=== PATIENT | female | born 1950 | race Caucasian/White ===

== ENCOUNTER → 2016-03-24 | Outpatient (CLI) | payer MEDICARE, BC, OTHER ==
[~2016-03-24] MED LIST: /ESCI10TA PO; ASPIRIN; ASPIRIN PO; CEPH2CAP PO; CRES5TAB PO; VICO5TA PO; VIT D PO; WARF5VL PO; XOPEAER IN
[2016-03-24 17:03] LABS: INR 3.14
== END ==
LOC: M WUC 12:19
PROVIDERS: ATTEND Internal Medicine Pulmonary Disease
DX: Z09 Encounter for follow-up examination after completed treatment for conditions other than malignant neoplasm (principal); Z79.01 Long term (current) use of anticoagulants; Z86.711 Personal history of pulmonary embolism

== ENCOUNTER → 2016-04-08 | Outpatient (CLI) | payer MEDICARE, BC, OTHER ==
[2016-04-08 18:24] LABS: INR 2.71
== END ==
LOC: M WUC 11:29
PROVIDERS: ATTEND Internal Medicine Pulmonary Disease
DX: Z51.81 Encounter for therapeutic drug level monitoring (principal); Z79.01 Long term (current) use of anticoagulants; Z86.711 Personal history of pulmonary embolism

== ENCOUNTER → 2016-05-12 | Outpatient (CLI) | payer MEDICARE, BC, OTHER ==
[2016-05-12 17:14] LABS: INR 3.43
== END ==
LOC: M WUC 13:38
PROVIDERS: ATTEND Internal Medicine Pulmonary Disease
DX: Z86.711 Personal history of pulmonary embolism (principal)

== ENCOUNTER → 2016-05-20 | Outpatient (REF) | payer MEDICARE, BC, OTHER | LOC: M LAB REF 16:09 | PROVIDERS: ATTEND Family Medicine | DX: R30.0 Dysuria (principal) ==

== ENCOUNTER → 2016-06-01 | Outpatient (CLI) | payer MEDICARE, BC, OTHER ==
[2016-06-01 20:51] LABS: INR 5.35
== END ==
LOC: M WUC 15:25
PROVIDERS: ATTEND Internal Medicine Pulmonary Disease
DX: E79.0 Hyperuricemia without signs of inflammatory arthritis and tophaceous disease (principal); Z86.711 Personal history of pulmonary embolism; Z09 Encounter for follow-up examination after completed treatment for conditions other than malignant neoplasm

== ENCOUNTER → 2016-06-07 | Outpatient (CLI) | payer MEDICARE, BC, OTHER ==
[2016-06-07 13:18] LABS: INR 2.29
== END ==
LOC: M WUC 10:19
PROVIDERS: ATTEND Internal Medicine Pulmonary Disease
DX: Z86.711 Personal history of pulmonary embolism (principal)

== ENCOUNTER → 2016-06-08 | Outpatient (REF) | payer MEDICARE, OTHER ==
[2016-06-08 15:22] LABS: BACTERIA, URINE MOD AMOUNT; TRANSITIONAL EPI CELLS, URINE SMALL AMOUNT /hpf
[2016-06-08 15:24] LABS: HYALINE CAST, URINE NONE SEEN /lpf (0-1); SQUAMOUS EPITHELIAL CELL URINE MOD AMOUNT /hpf (SMALL AMT)
[2016-06-08 15:25] LABS: CALCIUM OXALATE CRYSTALS,URINE SMALL AMOUNT /hpf
[2016-06-08 15:28] LABS: MICROSCOPIC EXAM PERFORMED
[2016-06-10 00:08] LABS: Candida species Negative (Negative); Gardnerella vaginalis Negative (Negative); Trichamonas vaginalis Negative (Negative)
== END ==
LOC: M SMT 13:10
PROVIDERS: ATTEND Specialist
DX: R30.0 Dysuria (principal)
CPT/HCPCS: 81015; 87086; 87480; 87510; 87660; G0463

== ENCOUNTER → 2016-06-15 | Outpatient (CLI) | payer MEDICARE, OTHER ==
[2016-06-15 18:49] LABS: INR 2.66
== END ==
LOC: M WUC 10:39
PROVIDERS: ATTEND Internal Medicine Pulmonary Disease
DX: Z86.711 Personal history of pulmonary embolism (principal)

== ENCOUNTER 2016-07-05 19:45 | Emergency (ER) | payer MEDICARE, OTHER ==
[~2016-07-05] VITALS: Ht 167.6 cm; Wt 100.7 kg
[2016-07-05] MEDS ORDERED: LOVE0.8I SC (19:54)
[2016-07-05] MEDS ORDERED: PROP10IN IV (19:54)
[2016-07-05 21:45] VITALS: BP 132/67
--- NOTE | 2016-07-06 09:10 | REP ---
ABDOMINAL SERIES: Supine and erect views of the abdomen and pelvis demonstrate no evidence of free intraperitoneal air and no evidence of small bowel obstruction. No dilated small bowel loops are seen. Metallic clips are seen in the right upper quadrant. There are degenerative changes of the spine. An accompanying view of the chest demonstrates no acute infiltrate. Calcified granuloma is seen in the right upper lobe. The heart is not enlarged. IMPRESSION: Negative abdominal series. Signed by Ethan Rojas MD 07/06/2016 04:44 P
== END 2016-07-05 21:47 | disposition home or self-care (01) ==
LOC: M ED 21:07
DX: Z51.89 Encounter for other specified aftercare (principal); Z88.0 Allergy status to penicillin; Z88.5 Allergy status to narcotic agent; Z79.01 Long term (current) use of anticoagulants; Z79.899 Other long term (current) drug therapy

== ENCOUNTER → 2016-07-08 | Outpatient (CLI) | payer MEDICARE, OTHER ==
[~2016-07-08] MED LIST changes: +LOVE0.8I SC; +PROP10IN IV
[2016-07-08 13:03] LABS: INR 2.19
== END ==
LOC: M WUC 09:32
PROVIDERS: ATTEND Internal Medicine Pulmonary Disease
DX: Z79.01 Long term (current) use of anticoagulants (principal); Z86.711 Personal history of pulmonary embolism

== ENCOUNTER → 2016-07-11 | Outpatient (CLI) | payer MEDICARE, OTHER ==
[2016-07-11 16:57] LABS: INR 1.79
== END ==
LOC: M WUC 14:40
PROVIDERS: ATTEND Internal Medicine Pulmonary Disease
DX: Z79.01 Long term (current) use of anticoagulants (principal)

== ENCOUNTER → 2016-07-15 | Outpatient (CLI) | payer MEDICARE, OTHER ==
[2016-07-15 12:37] LABS: INR 2.6
== END ==
LOC: M WUC 10:38
PROVIDERS: ATTEND Internal Medicine Pulmonary Disease
DX: Z79.01 Long term (current) use of anticoagulants (principal); Z86.711 Personal history of pulmonary embolism

== ENCOUNTER → 2016-07-20 | Outpatient (CLI) | payer MEDICARE, OTHER ==
[2016-07-20 18:14] LABS: BLOOD UREA NITROGEN 15 MG/DL (7-18); GLOMERULAR FILTRATION RATE > 60.0 (>45)
== END ==
LOC: M WUC 14:47
PROVIDERS: ATTEND Internal Medicine Gastroenterology
DX: K57.30 Diverticulosis of large intestine without perforation or abscess without bleeding (principal)

== ENCOUNTER → 2016-07-21 | Outpatient (CLI) | payer MEDICARE, BC, OTHER ==
[~2016-07-21] MED LIST changes: +GASTROGRAFIN SOLUTION 30ML (Q9963) As Ordered ONE; +ISOVUE-370 76% 100ML VIAL (Q9967) As Ordered ONE
--- NOTE | 2016-07-21 12:03 | REP ---
Clinical: Lower abdominal pain. Diverticulitis. Technique: Axial contrast enhanced images from the lung bases to the pubic symphysis using oral and 100 ml Isovue 370 intravenous contrast material with precontrast and delayed images of the abdomen as well as coronal and sagittal re-formations. Comparison: 11/11/2013. Findings: Mural thickening and pericolonic inflammatory stranding involving the proximal sigmoid colon as well as small amount of free fluid, phlegmonous changes and small foci of extraluminal fluid is compatible with acute sigmoid diverticulitis with abscess formation (images 100 - 120). The most well differentiated fluid collection/abscess is identified along the anti mesenteric border of the inflamed sigmoid colon and roughly measures 2.9 x 2.5 x 3.3 cm and appears essentially inseparable from the dome of the bladder which itself demonstrates ill-defined thickening. Correlation with urinalysis may be warranted to exclude colovesical fistula formation. Small foci of extraluminal gas adjacent to the area of diverticulitis is also suggested and may represent contained perforation. No there is no evidence for bowel obstruction and the remainder of the small and large bowel is relatively normal. Further evaluation of the pelvis demonstrates small amount of pelvic fluid and 4.5 cm left adnexal cyst which was identified on prior examination dated 2013. Liver, spleen, pancreas, bilateral adrenal glands and kidneys are normal. Evidence for prior cholecystectomy noted. Atherosclerotic changes of the vasculature identified without aortic aneurysm. Small fat containing right inguinal hernia. No significant adenopathy. Musculoskeletal structures demonstrate age-related degenerative changes. Lung bases are essentially clear. Impression: 1. Evidence for sigmoid diverticulitis including phlegmonous changes and small forming abscess inseparable from the dome of the bladder which itself appears irregular and secondarily inflamed. Correlation with urinalysis is recommended to exclude colovesical fistula. Contained perforation with small amount of extraluminal gas are also suspected as well as free fluid extending into the pelvis. No evidence for bowel obstruction. 2. 4.5 cm left adnexal cyst essentially unchanged compared to 2013. 3. Further chronic stable changes as described above. Signed by Chung Coffman MD 07/21/2016 11:55 A
== END ==
LOC: M RAD 09:30
PROVIDERS: ATTEND Internal Medicine Gastroenterology
DX: K57.30 Diverticulosis of large intestine without perforation or abscess without bleeding (principal)
CPT/HCPCS: 74178; Q9963; Q9967

== ENCOUNTER → 2016-07-22 | Outpatient (CLI) | payer MEDICARE, BC, OTHER ==
[~2016-07-22] MED LIST changes: -GASTROGRAFIN SOLUTION 30ML (Q9963) As Ordered ONE; -ISOVUE-370 76% 100ML VIAL (Q9967) As Ordered ONE
[2016-07-22 17:36] LABS: INR 4.75
== END ==
LOC: M WUC 11:35
PROVIDERS: ATTEND Internal Medicine Pulmonary Disease
DX: Z79.01 Long term (current) use of anticoagulants (principal); Z86.711 Personal history of pulmonary embolism

== ENCOUNTER → 2016-07-26 | Outpatient (CLI) | payer MEDICARE, BC, OTHER ==
[2016-07-26 17:23] LABS: INR 2.08
== END ==
LOC: M WUC 11:09
PROVIDERS: ATTEND Internal Medicine Pulmonary Disease
DX: Z79.01 Long term (current) use of anticoagulants (principal); Z86.711 Personal history of pulmonary embolism

== ENCOUNTER → 2016-08-02 | Outpatient (CLI) | payer MEDICARE, BC, OTHER ==
[~2016-08-02] MED LIST changes: +CIPR500T89 PO; +FLAG500T PO; +ROSU5TAB PO; +WARF-23 PO; +WARF4TAB52 PO
[2016-08-02 17:18] LABS: INR 1.3
== END ==
LOC: M WUC 13:41
PROVIDERS: ATTEND Internal Medicine Pulmonary Disease
DX: Z86.711 Personal history of pulmonary embolism (principal); Z79.01 Long term (current) use of anticoagulants

== ENCOUNTER 2016-08-04 07:30 | Inpatient (IN) | payer MEDICARE, BC, OTHER ==
--- NOTE | 2016-08-03 15:47 | HPE ---
DATE OF ADMISSION: 08/04/2016 ADMITTING DIAGNOSIS: Sigmoid diverticulitis with abscess and possible colovesical fistula. 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 She reported that back in January of 2016 she had developed some diarrhea and abdominal cramping. In April, she developed symptoms of a urinary tract infection. She was treated with antibiotics for a week. Her symptoms abated somewhat, but at the end of April she was again diagnosed with a urinary tract infection. She reported significant urinary symptoms. She reports having had a urinalysis and culture and sensitivity that showed no bacteria. She saw Dr. Sulema Adames of urology on June 08, 2016. This was due to the severity of her dysuria symptoms. She saw Dr. Hurtado of gastroenterology in [place] who performed incomplete colonoscopy on July 05, 2016. Apparently, he was unable to advance the scope beyond the descending colon. He reported moderate severity diverticulosis. There was a suggestion of some luminal narrowing. She was sent for a CT colonography done on the same date to evaluate. It was reported that she had a 7 cm segment of proximal sigmoid colon that appeared thick-walled. There was substantial surrounding inflammatory change with a contained collection, maximally 3.6 cm in diameter containing fluid and a small amount of gas. She was started on ciprofloxacin and Flagyl. She was sent for a follow-up CT scan on July 21. This was done at [facility] and showed a small abscess contained between the dome of the bladder and the proximal sigmoid colon. This was maximally 2.9 cm in diameter. She was noted to have fairly extensive diverticulosis. There was no evidence of air within the bladder at that time. She was referred to my office for further evaluation and treatment. Her chief complaint currently is of significant voiding symptoms. She describes significant bladder irritability and reports that she is voiding small amounts very frequently up to every 15 minutes. She had not at the time of her office visit noted any pneumaturia, but called the office on August 03 to report that she does think she has been passing small amounts of air with her urine. She has not had any hematuria. She was placed back on ciprofloxacin and Flagyl on July [address] scan and had not noticed any significant improvement in her symptoms. The patient and I discussed treatment of her small abscess contained between the colon and the bladder. This seems to have been resistant to antibiotic treatment. She has significant bladder irritability symptoms. With her report that she may have been having some pneumaturia, she may also have a colovesical fistula. We had discussed proceeding with a laparoscopic sigmoid colectomy to address the issue and she is being admitted on August 04 for surgery. ALLERGIES: MORPHINE and PENICILLIN. She reports muscle aches with LIPITOR. CURRENT MEDICATIONS: She has been on Coumadin daily, but has been on bridge therapy with Lovenox using 100 mg subcu twice daily. She takes Crestor 5 mg by mouth daily and Lexapro 10 mg by mouth daily. MEDICAL HISTORY: Significant for a previous pulmonary embolism some years ago and she has remained on Coumadin since. She has a history of obesity. She has hypercholesterolemia. She has had a small skin cancer excised from her nose. SURGICAL HISTORY: The patient underwent an open cholecystectomy many years ago. She has had a hysterectomy with accompanying appendectomy, but her ovaries remain. 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 FAMILY HISTORY: The patient's father succumbed to melanoma and had a history of diabetes. Her mother had cerebrovascular accident. SOCIAL HISTORY: The patient is a nurse. She is . She is a nonsmoker and reports consumption of approximately one glass of wine per week. PRIMARY CARE PROVIDER: Dr. Michele Ambrocio, though she sees Dr. German Sadler of pulmonary for management of her anticoagulation. REVIEW OF SYSTEMS: The patient denies any fevers or chills currently. She has not had any visual or auditory symptoms. She denies any chest pain or palpitations. She denies chronic cough, wheezing, sputum production or dyspnea. The patient has not had any rectal bleeding. Urinary symptoms: The patient reports no hematuria, but has persistent symptoms of dysuria with urgency and frequency of voiding with frequent nocturia. She denies any significant bone or joint issues. PHYSICAL EXAMINATION: Reveals a pleasant woman appearing somewhat uncomfortable. Her height is recorded as 65 inches with a weight of 102 kg, yielding a BMI of approximately 38. She is alert, oriented and cooperative. Her skin is warm and dry. Sclerae are anicteric. Mucous membranes are moist. Neck is supple without mass or bruit. Heart: Exam shows a regular rate and rhythm. The lungs were clear to auscultation bilaterally. The abdomen is somewhat obese. She has a well-healed right subcostal scar. There is an old low transverse scar. There is no evident hernia. She has active bowel sounds. The abdomen is soft and without significant tenderness to palpation. There is no palpable mass. LABORATORY FINDINGS: The patient's most recent labs showed a PT of 16.3 with an INR of 1.3 on the 02 of August. IMAGING STUDIES: She had a CT scan of the abdomen and pelvis on July 21, 2016. This was done with some oral contrast as well as some IV contrast. This showed some clips in the gallbladder fossa consistent with prior cholecystectomy. She had a small fluid collection walled off between the dome of the bladder and the sigmoid colon. There appeared to be a cyst in the left adnexal region. She had stranding around the sigmoid colon, proximal portion, consistent with diverticulitis and possibly scarring from prior episodes. There was no free air identified. There was no air noted within the bladder at that time. IMPRESSION: 1. Sigmoid diverticulitis with abscess. 2. Possible colovesical fistula. 3. History of pulmonary embolus on chronic anticoagulation. 4. Hypercholesterolemia. 5. Obesity. PLAN: The patient is scheduled for a laparoscopic sigmoid colectomy on August 04. She is to perform a full mechanical and antibiotic bowel preparation on August 03 utilizing Golytely with neomycin and Flagyl. She will receive a dose of Invanz preoperatively in the OR. She will receive a dose of Entereg preoperatively as well. A Farr catheter will be inserted at the time of surgery. She was counseled that given the degree of inflammatory change from her diverticulitis as well as her history of prior open cholecystectomy and hysterectomy that conversion to an open procedure may be necessary. She had an opportunity to ask questions regarding the procedure. She has been converted to periodic Lovenox for bridge therapy of her anticoagulation around the time of surgery. The patient was counseled regarding the risks of the procedure, which include but are not limited to bleeding, infection, scarring, adverse drug reaction, need for further surgery, injury to internal organ, anastomotic leak, and hernia. She desires to proceed with the surgery as scheduled. DARY
[~2016-08-04] VITALS: Ht 167.6 cm; Wt 106.7 kg
[~2016-08-04 07:30] MED LIST changes: -CIPR500T89 PO; -FLAG500T PO
[2016-08-04] MEDS: fentaNYL 100 MCG/2 ML INJECTION (J3010) IV PRN ×4 (11:20→23:47)
[2016-08-04] MEDS ORDERED: LR 1,000 ML IV SCH ×2 (15:45→22:30)
[2016-08-04] MEDS ORDERED: LR 1,000 ML IV ONE (15:45)
[2016-08-04] MEDS ORDERED: ERTAPENEM SODIUM 1 GM in NS MINI-BAG PLUS 50 ML IV ONE (16:00)
[2016-08-04] MEDS ORDERED: ALVIMOPAN 12 MG CAPSULE (ENTEREG) PO ONE (16:00)
[2016-08-04 16:02] LABS: MEAN CORPUSCULAR HEMOGLOBIN 27.1 pg (27.0-33.0); MEAN CORPUSCULAR HGB CONC 30.9 g/dl (32.0-36.5); MEAN CORPUSCULAR VOLUME 87.6 fl (80.0-96.0); RED CELL DISTRIBUTION WIDTH 17.1 % (11.5-14.5); WHITE BLOOD COUNT 5.7 K/mm3 (4.0-10.0)
[2016-08-04 16:10] LABS: INR 1.11
[2016-08-04] MEDS ORDERED: dexameTHASONE 4 MG/ML 1ML VIAL (J1100) As Ordered ONE (16:52)
[2016-08-04] MEDS ORDERED: LIDOCAINE 2% INJ 100 MG/5 ML SDV (FOR ANES.) As Ordered ONE (16:52)
[2016-08-04] MEDS ORDERED: fentaNYL 250 MCG/5 ML INJECTION (J3010) As Ordered ONE (16:52)
[2016-08-04] MEDS ORDERED: ROCURONIUM BROMIDE 50 MG/5 ML VIAL As Ordered ONE ×2 (16:52→18:33)
[2016-08-04] MEDS ORDERED: PROPOFOL 200 MG/20 ML VIAL As Ordered ONE ×2 (16:52→20:41)
[2016-08-04] MEDS ORDERED: MIDAZOLAM INJ 2 MG/2 ML VIAL (J2250) As Ordered ONE (16:53)
[2016-08-04] MEDS ORDERED: BUPIVACAINE HCL 0.25% 30 ML VIAL As Ordered ONE (17:05)
[2016-08-04] MEDS ORDERED: BUPIVACAINE LIPOSOME/PF 1.3% 20 ML VIAL (13.3MG/ML)(EXPAREL) As Ordered ONE (17:06)
[2016-08-04] MEDS ORDERED: NEOSTIGMINE 1MG/ML 5 ML SYRINGE (J2710) As Ordered ONE (18:33)
[2016-08-04] MEDS ORDERED: GLYCOPYRROLATE INJ 0.2 MG/ML 2 ML VIAL As Ordered ONE (18:33)
[2016-08-04] MEDS ORDERED: HYDROmorphone HCL 2 MG/ML 1ML VIAL (J1170) As Ordered ONE (18:37)
[2016-08-04] MEDS ORDERED: LABETALOL HCL 100 MG/20 ML VIAL As Ordered ONE (18:51)
[2016-08-04] MEDS ORDERED: PROPOFOL 500 MG/50 ML VIAL As Ordered ONE (20:02)
[2016-08-04] MEDS ORDERED: ESMOLOL INJ 100MG/10ML VIAL As Ordered ONE (21:02)
[2016-08-04] MEDS ORDERED: fentaNYL 100 MCG/2 ML INJECTION (J3010) As Ordered ONE (21:06)
[2016-08-04] MEDS: LR 1,000 ML IV SCH (21:50)
[2016-08-04] MEDS ORDERED: HYDROmorphone HCL 1 MG/ML SYRINGE (J1170) IV PRN ×2 (22:00→22:30)
[2016-08-04] MEDS ORDERED: ONDANSETRON 4MG/2ML VIAL (J2405) IV PRN ×2 (22:00→22:30)
[2016-08-04] MEDS ORDERED: PERCOCET 5MG/325MG TAB PO PRN (22:30)
[2016-08-04 22:36] LABS: BASO % 0.2 % (0.0-1.0); EOS # 0.1 K/mm3 (0.0-0.50); EOS % 1.5 % (0.0-3.0); LARGE UNSTAINED CELL % 0.7 % (0.0-4.0); LYMPH # 0.6 K/mm3 (1.5-4.5); LYMPH % 9.2 % (24.0-44.0); MEAN CORPUSCULAR HEMOGLOBIN 28.4 pg (27.0-33.0); MEAN CORPUSCULAR HGB CONC 31.9 g/dl (32.0-36.5); MONO # 0.1 K/mm3 (0.0-0.8); MONO % 2.3 % (0.0-5.0); NEUTROPHILS # 5.2 K/mm3 (1.8-7.7); NEUTROPHILS % 86.1 % (36.0-66.0); PLATELET COUNT, AUTOMATED 241 k/mm3 (150-450); RED CELL DISTRIBUTION WIDTH 17.1 % (11.5-14.5)
[2016-08-04 22:53] LABS: ANION GAP 9 MEQ/L (8-16); BLOOD UREA NITROGEN 12 MG/DL (7-18); CALCIUM LEVEL 7.7 MG/DL (8.8-10.2); CARBON DIOXIDE LEVEL 26 MEQ/L (21-32); CHLORIDE LEVEL 107 MEQ/L (98-107); CREATININE FOR GFR 0.56 MG/DL (0.55-1.02); GLOMERULAR FILTRATION RATE > 60.0 (>45); GLUCOSE, FASTING 170 MG/DL (80-110); POTASSIUM SERUM 3.6 MEQ/L (3.5-5.1); SODIUM LEVEL 142 MEQ/L (136-145)
[2016-08-05] VITALS (11 sets, daily range): BP systolic 127–173; BP diastolic 18–95
[2016-08-05] MEDS: HYDROmorphone HCL 1 MG/ML SYRINGE (J1170) IV PRN ×4 (02:00→15:41)
[2016-08-05] MEDS: KETOROLAC 30 MG/ML VIAL (J1885) IV PRN ×3 (02:01→20:38)
[2016-08-05] MEDS: LR 1,000 ML IV SCH (05:34)
[2016-08-05 08:45] LABS: CARCINOEMBRYONIC ANTIGEN < 0.5 NG/ML (<2.5)
[2016-08-05] MEDS: DOCUSATE SODIUM 100 MG CAP PO SCH ×2 (08:56→20:37)
[2016-08-05] MEDS: ALVIMOPAN 12 MG CAPSULE (ENTEREG) PO SCH ×2 (08:57→20:37)
[2016-08-05] MEDS: ENOXAPARIN 40 MG/0.4 ML SYRINGE (J1650) SC SCH (08:57)
[2016-08-05] MEDS: HumaLOG INSULIN (NovoLOG) PER UNIT SC SCH ×2 (12:04→18:00)
[2016-08-05] MEDS: ERTAPENEM SODIUM 1 GM in NS MINI-BAG PLUS 50 ML IV SCH (15:40)
[2016-08-05] MEDS ORDERED: ACETAMINOPHEN TAB 650MG DOSE (2X325MG) PO PRN (23:30)
[2016-08-06] MEDS: HumaLOG INSULIN (NovoLOG) PER UNIT SC SCH ×4 (00:33→17:44)
[2016-08-06 02:00] VITALS: BP 133/65
[2016-08-06 06:00] VITALS: BP 146/70
[2016-08-06] MEDS: LR 1,000 ML IV SCH (06:23)
[2016-08-06] MEDS: ALVIMOPAN 12 MG CAPSULE (ENTEREG) PO SCH ×2 (09:39→20:00)
[2016-08-06] MEDS: HYDROmorphone HCL 1 MG/ML SYRINGE (J1170) IV PRN (09:39)
[2016-08-06] MEDS: DOCUSATE SODIUM 100 MG CAP PO SCH ×2 (09:39→20:00)
[2016-08-06] MEDS: ENOXAPARIN 40 MG/0.4 ML SYRINGE (J1650) SC SCH (09:40)
[2016-08-06 10:00] VITALS: BP 141/63
[2016-08-06 14:00] VITALS: BP 148/70
[2016-08-06] MEDS: KETOROLAC 30 MG/ML VIAL (J1885) IV PRN (16:24)
[2016-08-06] MEDS: ERTAPENEM SODIUM 1 GM in NS MINI-BAG PLUS 50 ML IV SCH (16:24)
[2016-08-06 18:00] VITALS: BP 137/64
[2016-08-06] MEDS ORDERED: HumaLOG INSULIN (NovoLOG) PER UNIT SC SCH (21:00)
[2016-08-06 22:00] VITALS: BP 139/74
[2016-08-07 02:00] VITALS: BP 150/71
[2016-08-07 05:52] LABS: BASO % 0.1 % (0.0-1.0); EOS % 0.8 % (0.0-3.0); LARGE UNSTAINED CELL # 0.1 K/mm3 (0.0-0.4); LARGE UNSTAINED CELL % 0.9 % (0.0-4.0); LYMPH # 1.1 K/mm3 (1.5-4.5); LYMPH % 16.3 % (24.0-44.0); MEAN CORPUSCULAR HGB CONC 31.7 g/dl (32.0-36.5); MEAN CORPUSCULAR VOLUME 88.4 fl (80.0-96.0); MONO # 0.4 K/mm3 (0.0-0.8); MONO % 5.6 % (0.0-5.0); NEUTROPHILS # 4.9 K/mm3 (1.8-7.7); NEUTROPHILS % 76.3 % (36.0-66.0); PLATELET COUNT, AUTOMATED 264 k/mm3 (150-450); RED CELL DISTRIBUTION WIDTH 17.3 % (11.5-14.5); WHITE BLOOD COUNT 6.4 K/mm3 (4.0-10.0)
[2016-08-07 06:00] VITALS: BP 136/69
[2016-08-07 06:09] LABS: ALBUMIN 2.1 GM/DL (3.2-5.2); ALBUMIN/GLOBULIN RATIO 0.57 (1.00-1.93); ALKALINE PHOSPHATASE 44 U/L (45-117); ALT/SGPT 27 U/L (12-78); ANION GAP 6 MEQ/L (8-16); AST/SGOT 22 U/L (15-37); BILIRUBIN,TOTAL 0.5 MG/DL (0.2-1.0); BLOOD UREA NITROGEN 12 MG/DL (7-18); CALCIUM LEVEL 7.9 MG/DL (8.8-10.2); CARBON DIOXIDE LEVEL 29 MEQ/L (21-32); CHLORIDE LEVEL 107 MEQ/L (98-107); CREATININE FOR GFR 0.56 MG/DL (0.55-1.02); GLOMERULAR FILTRATION RATE > 60.0 (>45); GLUCOSE, FASTING 109 MG/DL (80-110); POTASSIUM SERUM 3.2 MEQ/L (3.5-5.1); SODIUM LEVEL 142 MEQ/L (136-145); TOTAL PROTEIN 5.8 GM/DL (6.4-8.2)
[2016-08-07] MEDS ORDERED: HumaLOG INSULIN (NovoLOG) PER UNIT SC SCH (07:30)
[2016-08-07] MEDS: ENOXAPARIN 100MG/1ML SYRINGE (J1650) SC SCH ×2 (09:38→20:18)
[2016-08-07] MEDS: DOCUSATE SODIUM 100 MG CAP PO SCH ×2 (09:39→20:18)
[2016-08-07] MEDS: ALVIMOPAN 12 MG CAPSULE (ENTEREG) PO SCH ×2 (09:39→20:18)
[2016-08-07] MEDS: POTASSIUM CHLORIDE 10 MEQ SR TABLET PO SCH ×3 (09:39→20:19)
[2016-08-07 10:00] VITALS: BP 138/68
[2016-08-07] MEDS ORDERED: ONDANSETRON 4 MG ORAL DISINTEGRATING TAB (S0181) PO PRN (12:30)
[2016-08-07] MEDS ORDERED: HYDROmorphone 2 MG TAB PO PRN (12:30)
[2016-08-07] MEDS: metroNIDAZOLE (FLAGYL) 500 MG TAB PO SCH ×2 (13:12→20:18)
[2016-08-07 14:00] VITALS: BP 143/69
[2016-08-07] MEDS: WARFARIN SOD 5 MG TAB PO SCH (16:57)
[2016-08-07] MEDS: IBUPROFEN 600 MG TAB PO PRN (16:58)
[2016-08-07 18:00] VITALS: BP 144/72
[2016-08-07] MEDS: CIPROFLOXACIN 500 MG TAB PO SCH (18:28)
[2016-08-07 22:00] VITALS: BP 136/84
[2016-08-08 02:00] VITALS: BP 127/62
[2016-08-08] MEDS: IBUPROFEN 600 MG TAB PO PRN ×2 (05:29→17:13)
[2016-08-08] MEDS: CIPROFLOXACIN 500 MG TAB PO SCH ×2 (05:29→17:12)
[2016-08-08] MEDS: metroNIDAZOLE (FLAGYL) 500 MG TAB PO SCH ×3 (05:29→20:35)
[2016-08-08 06:00] VITALS: BP 131/68
[2016-08-08 06:08] LABS: INR 1.26
[2016-08-08 06:23] LABS: BLOOD UREA NITROGEN 10 MG/DL (7-18); CALCIUM LEVEL 8.3 MG/DL (8.8-10.2); CARBON DIOXIDE LEVEL 32 MEQ/L (21-32); CHLORIDE LEVEL 109 MEQ/L (98-107); CREATININE FOR GFR 0.48 MG/DL (0.55-1.02); GLOMERULAR FILTRATION RATE > 60.0 (>45); GLUCOSE, FASTING 107 MG/DL (80-110)
[2016-08-08 06:32] LABS: ANION GAP 1 MEQ/L (8-16); SODIUM LEVEL 142 MEQ/L (136-145)
[2016-08-08 06:33] LABS: POTASSIUM SERUM 3.9 MEQ/L (3.5-5.1)
[2016-08-08] MEDS: ALVIMOPAN 12 MG CAPSULE (ENTEREG) PO SCH ×2 (08:04→20:35)
[2016-08-08] MEDS: DOCUSATE SODIUM 100 MG CAP PO SCH ×2 (08:04→20:35)
[2016-08-08] MEDS: ENOXAPARIN 100MG/1ML SYRINGE (J1650) SC SCH ×2 (08:04→20:35)
[2016-08-08 10:00] VITALS: BP 136/67
[2016-08-08 14:00] VITALS: BP 138/63
[2016-08-08] MEDS: WARFARIN SOD 5 MG TAB PO SCH (17:12)
[2016-08-08 18:00] VITALS: BP 144/78
[2016-08-08] MEDS ORDERED: metroNIDAZOLE (FLAGYL) 500 MG TAB As Ordered ONE (20:31)
[2016-08-08 22:00] VITALS: BP 116/57
[2016-08-09 01:59] VITALS: BP 136/73
[2016-08-09] MEDS: metroNIDAZOLE (FLAGYL) 500 MG TAB PO SCH ×2 (05:27→15:23)
[2016-08-09] MEDS: CIPROFLOXACIN 500 MG TAB PO SCH ×2 (05:28→17:18)
[2016-08-09] MEDS: IBUPROFEN 600 MG TAB PO PRN ×2 (05:28→15:28)
[2016-08-09 06:00] VITALS: BP 130/69
[2016-08-09 06:52] LABS: BASO % 0.3 % (0.0-1.0); EOS # 0.1 K/mm3 (0.0-0.50); EOS % 3.4 % (0.0-3.0); LARGE UNSTAINED CELL # 0.1 K/mm3 (0.0-0.4); LYMPH % 22.2 % (24.0-44.0); MEAN CORPUSCULAR HEMOGLOBIN 28.4 pg (27.0-33.0); MEAN CORPUSCULAR VOLUME 88.6 fl (80.0-96.0); MONO # 0.3 K/mm3 (0.0-0.8); MONO % 8.1 % (0.0-5.0); NEUTROPHILS # 2.7 K/mm3 (1.8-7.7); NEUTROPHILS % 64.1 % (36.0-66.0); PLATELET COUNT, AUTOMATED 311 k/mm3 (150-450); WHITE BLOOD COUNT 4.3 K/mm3 (4.0-10.0)
[2016-08-09 06:54] LABS: INR 1.3
[2016-08-09 07:12] LABS: ALBUMIN 1.9 GM/DL (3.2-5.2); ALBUMIN/GLOBULIN RATIO 0.58 (1.00-1.93); ALKALINE PHOSPHATASE 40 U/L (45-117); ALT/SGPT 17 U/L (12-78); ANION GAP 6 MEQ/L (8-16); AST/SGOT 13 U/L (15-37); BILIRUBIN,TOTAL 0.3 MG/DL (0.2-1.0); BLOOD UREA NITROGEN 13 MG/DL (7-18); CALCIUM LEVEL 7.7 MG/DL (8.8-10.2); CARBON DIOXIDE LEVEL 28 MEQ/L (21-32); CHLORIDE LEVEL 110 MEQ/L (98-107); CREATININE FOR GFR 0.51 MG/DL (0.55-1.02); GLOMERULAR FILTRATION RATE > 60.0 (>45); GLUCOSE, FASTING 106 MG/DL (80-110); POTASSIUM SERUM 3.9 MEQ/L (3.5-5.1); SODIUM LEVEL 144 MEQ/L (136-145); TOTAL PROTEIN 5.2 GM/DL (6.4-8.2)
[2016-08-09] MEDS: ALVIMOPAN 12 MG CAPSULE (ENTEREG) PO SCH (09:30)
[2016-08-09] MEDS: ENOXAPARIN 100MG/1ML SYRINGE (J1650) SC SCH (09:30)
[2016-08-09] MEDS: DOCUSATE SODIUM 100 MG CAP PO SCH (09:31)
[2016-08-09 10:00] VITALS: BP 142/69
[2016-08-09 14:00] VITALS: BP 145/69
[2016-08-09] MEDS: WARFARIN SOD 5 MG TAB PO SCH (17:18)
[2016-08-09 18:00] VITALS: BP 138/78
[2016-08-09] MEDS ORDERED: FLAG500T PO (18:57)
[2016-08-09] MEDS ORDERED: CIPR500T89 PO (18:57)
[2016-08-09 19:30] VITALS: BP 135/66
--- NOTE | 2016-08-10 07:26 | RO ---
DATE OF PROCEDURE: 08/04/2016 PREOPERATIVE DIAGNOSIS: Sigmoid diverticulitis with abscess. 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 PROCEDURE PERFORMED: Laparoscopy, laparotomy, sigmoid colectomy with drainage of abscess, biopsy of the bladder dome, and descending colostomy. SURGEON: Dr. Wagner Baca. PRESS SERVICE READER: Dr. Coreas. ANESTHESIA: General. ESTIMATED BLOOD LOSS: INDICATIONS FOR PROCEDURE: The patient is a pleasant 66-year-old woman who had some bowel symptoms and then developed significant urinary tract symptoms. Imaging revealed a fluid collection trapped between the thickened sigmoid colon and the dome of the bladder. This was consistent with an abscess. This failed to resolve with antibiotic treatment. She has significant bladder irritability with urinary frequency. There is concern that she may be developing or have developed a colovesical fistula. She is now for a laparoscopic sigmoid colectomy with drainage of the abscess. OPERATIVE PROCEDURE: The patient was placed supine on the operating table. She was placed under general endotracheal anesthesia. A Farr catheter was inserted. Thromboembolic deterrent stockings (TEDS) and sequentials were utilized. She was moved into a low lithotomy position with the lower extremities in padded leg holders. A digital rectal examination showed no palpable mucosal lesions. She did have some watery stool and some small particles of food debris identified on rectal exam suggesting a poor preoperative bowel prep. The patient's abdomen was prepped and draped in a sterile fashion. 0.25% Marcaine was infiltrated at her trocar sites as needed. A short infraumbilical incision was made and deepened through the subcutaneous tissues to the fascia which was opened. The peritoneum was opened and a Cas cannula was inserted. The abdomen was insufflated with carbon dioxide gas. The patient was tilted to a Trendelenburg position. I would note that the beanbag had been used in positioning for greater stability with tilting of the operating table. Initial examination showed that the colon was quite inflamed in appearance and adherent to the anterior pelvic wall in the expected location of the bladder. There were a few filmy adhesions in this area. She was also noted to have some significant adhesions in the right upper quadrant and along the midline. A 5 mm trocar was placed in the right lower quadrant. Using the harmonic scalpel, some of the adhesions along the midline were lysed. A third trocar was placed low in the right lower quadrant. Some additional adhesions were taken down but I then elected to proceed toward evaluation of the pelvis. The patient was tilted to a steep Trendelenburg position. The sigmoid colon was clearly densely adherent over the dome of the bladder. Along the right side of the pelvis, it was possible to elevate the more distal sigmoid and found that there were no significant adhesions in this area. The colon proximal to the sigmoid was perhaps mildly to moderately dilated and appeared somewhat thick-walled. I began to explore the attachment of the sigmoid over the bladder. The attachment seemed to be quite firm. Using the harmonic scalpel, the plane between the colon and the bladder was developed starting from the right and working toward the left. There were areas where a clear plane could be developed. As the dissection proceeded to the left, an area of collected debris was identified and entered. It was unclear if this represented a pocket of material contained between the colon and the bladder or if there was in fact a large perforation of the colon which was contained by the wall of the bladder. Some debris was removed from this pocket using the suction medical billing representative. Further inspection suggested the presence of some nodular pale tissue in this area that was suggestive of tumor rather than inflammatory tissue. There appeared to be an opening into the sigmoid colon with some stool present similar to that noted on rectal exam. I felt that at this point. it was prudent to convert to an open procedure to carry on the procedure. Therefore the abdomen was deflated and the trocars were removed. A low midline incision was made beginning at her Clark site and extending down toward the pubis. The tissues were opened down through the peritoneum. A handheld retractor and subsequently a Demian retractor with a bladder blade were utilized. By palpation it was possible to better define the connection between the colon and the bladder. It was possible to open some of this attachment by blunt finger dissection through tissue planes. The colon was therefore completely off of the bladder. There was an opening through the wall of the colon noted. There was some tissue suggestive of tumor which was noted. The dome of the bladder over an area of about 5-6 cm in diameter was quite hard and it was unclear how much of this represented inflammatory tissue and how much might represent a tumor. I elected to resect the sigmoid loop that had been adherent to the bladder to allow me to inspect this off the field and also to control any further spillage of the colon contents. Therefore the colon was divided proximal and distal to this resecting perhaps a 20 cm length of bowel. This was performed with a linear cutter 75 stapler. The mesentery was divided down toward the base but I did not make a rigorous attempt at resecting the mesentery of the sigmoid colon at this point. The vascular structures at the base of the mesentery were ligated and divided and the specimen was removed. This was opened off the field and inspection showed what appeared to be a colon cancer arising on the inner aspect of the bowel and penetrating at the area of the attachment to the bladder. This was sent for permanent pathology. I changed gown and gloves and returned to the abdomen. The pelvis was copiously irrigated with warm saline to remove any spilled material. Hemostasis was ensured. I inspected the dome of the bladder and as noted, there was a broad area of thickening some of which may have been inflammatory and some may have represented cancer. I shaved some of the thicker tissue off the central part of the bladder where the colon had been adherent. I considered the option of a significant bladder resection at this time but elected not to resect the bladder. In considering an anastomosis of the colon, I felt it was prudent for two reasons not to proceed with an anastomosis. First she had some thickening and dilation of the proximal bowel suggesting some longstanding partial obstruction and I felt that an anastomosis would be tenuous. Second I anticipate that she will require additional treatment and possibly surgery to address the possible residual tumor of the bladder and at that time, any further resection of the pelvic tissues could be performed. I therefore elected to complete the procedure by performing a descending colostomy. The pelvis was again irrigated. The area was checked for hemostasis which was excellent. It was necessary to mobilize the descending colon somewhat. The lateral attachments were divided and the dissection proceeded to free the descending colon adequately for a colostomy. The surgical team then changed gown and gloves and using the closing tray proceeded. I selected a point for the colostomy in the left upper quadrant. A disk of skin was excised over the rectus muscle. The subcutaneous fat was opened in cruciate fashion and the anterior rectus sheath was opened longitudinally. The muscle fibers were spread and the posterior fascia also opened longitudinally. The opening was dilated to two to three fingerbreadths to allow passage of the enlarged colon. The colon was delivered through the wound and had excellent length to allow maturation of the ostomy. The pelvis and left lower quadrant were checked for hemostasis which was excellent. The end of the rectosigmoid seemed to lie naturally over the dorsum of the top of the bladder. I would note that the small bowel had shown no evidence of any nodularity. It was impossible to inspect the right upper quadrant due to her extensive adhesions, presumably from her previous open cholecystectomy. There is no sign of any metastatic deposits within the pelvis. The peritoneum was closed with a running suture of #0 Chromic. The fascia was approximated with interrupted simple sutures of #1 Vicryl. The skin incision was closed loosely with skin angel. Three lengths of a quarter inch [place] drain were placed between the sutures to drain the subcutaneous tissues down to the anterior fascia. These were sutured to the skin with nylon sutures. This wound was then covered. I then closed the trocar sites also with skin angel. The colostomy was then matured. The staple line was cut off and hemostasis was ensured. The maturation was begun with 4 corner everting sutures of 3-0 vicryl. These nicely rolled over the end of the colon. There was excellent vascularity and good coloration. Some edema was noted. Multiple additional sutures were placed suturing the edge of the colon to the surrounding skin. An ostomy appliance was placed. The patient tolerated the procedure well. A bulky bandage was placed over her midline incision. The smaller incisions were covered with 2 x 2s. The patient was awakened in the operating room and extubated and moved to the recovery room in stable condition. DARY
--- NOTE | 2016-08-28 00:53 | DSES ---
DATE OF ADMISSION: 08/04/2016 DATE OF DISCHARGE: 08/09/2016 ADMITTING DIAGNOSIS: Sigmoid diverticulitis with abscess and possible colovesical fistula. 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 The patient reported that back in January 2016 she had developed some diarrhea and abdominal cramping. In April, she noted symptoms of a urinary tract infection. She was treated with antibiotics for a week. Her symptoms abated somewhat. At the end of April she was again diagnosed with a urinary tract infection. She reported significant urinary symptoms. She had a urinalysis and culture and sensitivity that showed no bacteria. She saw a urologist on 06/08/2016 due to her dysuria symptoms. She also saw a link trainer maintenance worker in [place] who performed an incomplete colonoscopy on 07/05/2016. Apparently, he was unable to advance the scope beyond the descending colon. He reported moderate severity diverticulosis. There was a suggestion of some luminal narrowing. She was sent for a CT colonography done on the same date and it was reported that she had a 7 cm segment of proximal sigmoid colon that appeared thick-walled. There was substantial surrounding inflammatory change with a contained collection maximally 3.6 cm in diameter containing fluid and gas. She was started on ciprofloxacin and Flagyl. She was sent for a followup CT scan on 07/21. This was done at [facility] and showed a small abscess contained between the dome of the bladder and the proximal sigmoid colon. This was maximally 2.9 cm in diameter. She was noted to have extensive diverticulosis. There was no evidence of air within the bladder at that time. I saw her in the office for evaluation and treatment. Her chief complaint most recently has been of significant voiding symptoms. She described significant bladder irritability and reports voiding in small amounts very frequently up to every 15 minutes. She had not at the time of her office visit noted any pneumaturia, but called the office on 08/03 to report that she thinks she may have been passing small amounts of air with her urine. She has not had hematuria. She was started back on ciprofloxacin and Flagyl on 07/22. The patient and I had discussed her treatment and with this persistent abscess and the possibility of a colovesical fistula, she is now being admitted to undergo a laparoscopic sigmoid colectomy. HOSPITAL COURSE: The patient performed a mechanical and antibiotic bowel preparation with neomycin and Flagyl and Suprep the day before admission. She did report that she developed some significant nausea and had some vomiting with her prep. It did not feel that it had worked as thoroughly as ideal. She was admitted on the first and taken to the operating room where she underwent laparoscopy with subsequent laparotomy with sigmoid colectomy and drainage of her abscess, biopsy of the bladder dome, and a descending colostomy. At surgery, she was found in the course of taking down her colovesical attachments to have some nodular tissue in that area suggestive of tumor. She was found to have a tumor which appeared to arise within the sigmoid colon. It was difficult to delineate the extent of the tumor on the dome of the bladder and I elected not to resect what would have required a large portion of her bladder at that time. She was given a descending colostomy. A Farr catheter was continued postoperatively. She was noted to have brief episodes of supraventricular tachycardia in the operating room. She was kept on telemetry overnight and there were no reports of any significant rhythm disturbances. She was receiving Dilaudid on an as-needed basis and [id number] Toradol. The patient was informed of the operative findings and my concern that there was tumor. She was started on some clear liquids. Her urine output was good. Her Farr catheter was removed on postoperative day #2. She was advanced to a regular diet also on day #2, but was advised to pick and choose. She was noted to have some stool and gas from her ostomy on postoperative day #2. She was started back on Lovenox on postoperative day #3 for a history of deep vein thrombosis and pulmonary embolism. Her hematocrit settled to approximately 30. She took her diet well. She was converted to oral medications on postoperative day #4 once her intravenous (IV) access was lost. She had been continued on some antibiotics postoperatively because of the presence of her abscess with some contamination within the pelvis. 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 Her pathology revealed moderately differentiated adenocarcinoma of the colon and some biopsies off the dome of the bladder also confirmed adenocarcinoma in this tissue. Her PT and INR on 08/09 were 16.3 and 1.3. She appeared to have gotten to a point where she was ready for discharge from the hospital and she was discharged home. FINAL DIAGNOSES: 1. Adenocarcinoma, moderately differentiated invading through the muscularis propria into the pericolonic adipose tissue. Tissue samples from the dome of the bladder on the peritoneal surface showed colonic adenocarcinoma. 2. 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 3. Hypercholesterolemia. 4. Obesity. 5. Nonsustained supraventricular tachycardia. PROCEDURE PERFORMED: Laparoscopy, laparotomy, sigmoid colectomy with drainage of abscess, biopsy of surface of bladder dome and descending colostomy. DISPOSITION: She was discharged home on 08/09/2016. She was taking a regular diet. She could pursue light activity as tolerated, but was advised against any strenuous activity or lifting greater than 30 pounds. She was to followup with me in the office on 08/17 or call sooner for any problems. She was to continue with her ostomy care. She was to continue Lovenox 100 mg subcutaneously twice daily until instructed to stop by Dr. German Salder. She was to continue her Coumadin as before admission. She was given prescriptions for ciprofloxacin 500 mg twice daily and Flagyl 500 mg three times daily to continue for three more days. The patient indicated that she had a friend who is an oncologist that she will discuss her diagnosis with and we can then discuss how she would like to pursue further treatment.
== END 2016-08-09 20:12 | disposition home or self-care (01) | DRG 330 ==
LOC: M OR 15:32 → M RR INP 15:32 → UNDOADMIN 15:32 → M OR 08-05 00:09 → M PCU 08-05 00:09 → M MSPAV 08-05 16:52 → UNDODISIN 08-09 20:12
PROVIDERS: ADMIT Surgery; ATTEND Surgery
PROC: 0DBN0ZX Excision of Sigmoid Colon, Open Approach, Diagnostic (ICD-10-PCS; 2016-08-04)
PROC: 0TBB0ZX Excision of Bladder, Open Approach, Diagnostic (ICD-10-PCS; 2016-08-04)
PROC: 0D1M0Z4 Bypass Descending Colon to Cutaneous, Open Approach (ICD-10-PCS; principal; 2016-08-04 07:30)
DX: C18.7 Malignant neoplasm of sigmoid colon (principal); K57.20 Diverticulitis of large intestine with perforation and abscess without bleeding; K63.2 Fistula of intestine; E78.00 Pure hypercholesterolemia, unspecified; E66.9 Obesity, unspecified; Z88.0 Allergy status to penicillin; Z88.5 Allergy status to narcotic agent; Z88.8 Allergy status to other drugs, medicaments and biological substances; Z79.01 Long term (current) use of anticoagulants; Z79.899 Other long term (current) drug therapy; Z86.711 Personal history of pulmonary embolism; Z85.828 Personal history of other malignant neoplasm of skin; Z90.49 Acquired absence of other specified parts of digestive tract; Z90.710 Acquired absence of both cervix and uterus; Z83.3 Family history of diabetes mellitus; Z80.9 Family history of malignant neoplasm, unspecified

== ENCOUNTER → 2016-08-05 | Outpatient (REF) | payer MEDICARE, BC, OTHER ==
[~2016-08-05] MED LIST changes: +CIPR500T89 PO; +FLAG500T PO
== END ==
LOC: M LAB REF 09:00
PROVIDERS: ATTEND Internal Medicine Medical Oncology
DX: C18.7 Malignant neoplasm of sigmoid colon (principal)

== ENCOUNTER → 2016-08-11 | Outpatient (CLI) | payer MEDICARE, BC, OTHER ==
[2016-08-11 17:37] LABS: INR 1.66
== END ==
LOC: M WUC 14:20
PROVIDERS: ATTEND Internal Medicine Pulmonary Disease
DX: Z79.01 Long term (current) use of anticoagulants (principal); Z86.711 Personal history of pulmonary embolism

== ENCOUNTER → 2016-08-15 | Outpatient (CLI) | payer MEDICARE, BC, OTHER ==
[2016-08-15 19:29] LABS: INR 2.05
== END ==
LOC: M WUC 15:18
PROVIDERS: ATTEND Internal Medicine Pulmonary Disease
DX: Z79.01 Long term (current) use of anticoagulants (principal); Z86.711 Personal history of pulmonary embolism

== ENCOUNTER → 2016-08-16 | Outpatient (REF) | payer MEDICARE, OTHER | LOC: M LAB REF 13:47 | PROVIDERS: ATTEND Internal Medicine Medical Oncology | DX: C18.9 Malignant neoplasm of colon, unspecified (principal) ==

== ENCOUNTER → 2016-08-17 | Outpatient (CLI) | payer MEDICARE, BC, OTHER ==
--- NOTE | 2016-08-18 19:54 | REP ---
Whole body PET CT scan: Comparison studies. A CT of the abdomen pelvis dated 07/21/2016. Scanning is performed from skull base to the upper thighs. Neck and supraclavicular areas: There is artifactual uptake in the salivary glands. There are no hypermetabolic foci. Chest: There are no hypermetabolic foci. Abdomen, pelvis and upper thighs: There is a focus of hypermetabolic uptake along the dome of the urinary bladder to the left of midline in the location where the abnormal bowel loop was identified on the comparison CT. The standard uptake value is 8.1. The focus measures approximately 2 cm by 1 cm. A left adnexal cyst is incidentally noted. There are no other hypermetabolic foci. Impression: There is a 1 x 2 cm focus of hypermetabolic uptake along the dome of the urinary bladder and the location where the abnormal bowel loop was identified on the comparison CT. There are no other hypermetabolic foci. The study is performed with 10 mCi of F 18 F D G. Signed by Ethan Damico MD 08/18/2016 07:45 P
== END ==
LOC: M PLARAD 10:32
PROVIDERS: ATTEND Internal Medicine Medical Oncology
DX: C18.9 Malignant neoplasm of colon, unspecified (principal)
CPT/HCPCS: 78815; A9552

== ENCOUNTER → 2016-08-18 | Outpatient (CLI) | payer MEDICARE, BC, OTHER ==
[2016-08-18 16:49] LABS: INR 1.7
== END ==
LOC: M WUC 15:39
PROVIDERS: ATTEND Internal Medicine Pulmonary Disease
DX: Z51.81 Encounter for therapeutic drug level monitoring (principal); Z79.01 Long term (current) use of anticoagulants; Z86.711 Personal history of pulmonary embolism

== ENCOUNTER → 2016-08-18 | Outpatient (CLI) | payer MEDICARE, BC, OTHER ==
[~2016-08-18] MED LIST changes: +ISOVUE-370 76% 100ML VIAL (Q9967) As Ordered ONE
--- NOTE | 2016-08-18 16:18 | REP ---
CT CHEST WITH IV CONTRAST: TECHNIQUE: Axial contrast enhanced images from the thoracic inlet to the upper abdomen using 100 mL Isovue 370 intravenous contrast material with multiplanar reformations. Calcified granuloma is seen in the right upper lobe peripherally. There are calcified lymph nodes in the mediastinum and right hilum. There is no suspicious adenopathy or nodule in either lung. There are bibasilar fibrotic changes. There is pleural or pericardiac effusion. The heart is normal in size. There is mild atherosclerotic calcification of the thoracic aorta without aneurysm or dissection. There are degenerative changes of the spine. IMPRESSION: Evidence of old granulomatous disease on the right. No suspicious mass or adenopathy. Signed by Ethan Rojas MD 08/18/2016 04:31 P
== END ==
LOC: M RAD 13:44
PROVIDERS: ATTEND Internal Medicine Medical Oncology
DX: C18.9 Malignant neoplasm of colon, unspecified (principal); J98.4 Other disorders of lung; Z51.81 Encounter for therapeutic drug level monitoring; Z79.01 Long term (current) use of anticoagulants; Z86.711 Personal history of pulmonary embolism
CPT/HCPCS: 36415; 71260; 85610; Q9967

== ENCOUNTER → 2016-08-25 | Outpatient (CLI) | payer MEDICARE, BC, OTHER ==
[~2016-08-25] MED LIST changes: -ISOVUE-370 76% 100ML VIAL (Q9967) As Ordered ONE
[2016-08-25 16:51] LABS: INR 1.85
== END ==
LOC: M WUC 11:40
PROVIDERS: ATTEND Internal Medicine Pulmonary Disease
DX: Z79.01 Long term (current) use of anticoagulants (principal); Z86.711 Personal history of pulmonary embolism

== ENCOUNTER → 2016-08-26 | Outpatient (REF) | payer MEDICARE, OTHER | LOC: M LAB REF 12:44 | PROVIDERS: ATTEND Internal Medicine Medical Oncology | DX: C18.9 Malignant neoplasm of colon, unspecified (principal); Z79.899 Other long term (current) drug therapy; Z51.81 Encounter for therapeutic drug level monitoring ==

== ENCOUNTER → 2016-08-30 | Outpatient (CLI) | payer MEDICARE, BC, OTHER ==
[~2016-08-30] MED LIST changes: +CIPR-249 PO; -CIPR500T89 PO; +COUM1TAB14 PO; +ENOX100I3 IM
[2016-08-30 12:57] LABS: INR 2.73
== END ==
LOC: M WUC 09:48
PROVIDERS: ATTEND Internal Medicine Pulmonary Disease
DX: Z51.81 Encounter for therapeutic drug level monitoring (principal); Z79.01 Long term (current) use of anticoagulants; Z86.711 Personal history of pulmonary embolism

== ENCOUNTER → 2016-08-31 | Outpatient (CLI) | payer MEDICARE, BC, OTHER ==
--- NOTE | 2016-08-31 14:49 | REP ---
MRI STUDY OF THE PELVIS WITHOUT AND WITH IV GADOLINIUM: HISTORY: Evaluate for tumor beyond the bladder. Comparison PET-CT study, August 17, 2016. Patient is status post sigmoid colon resection and bladder dome resection for adenocarcinoma of the colon on August 05, 2016. TECHNIQUE: Axial, sagittal, and coronal imaging planes are utilized. T1- and T2-weighted scans were obtained with and without fat saturation. Post-gadolinium enhanced imaging is included. The gadolinium enhancement dose is 20 mL of intravenous ProHance. MRI FINDINGS: Mild to moderate diffuse thickening of the bladder wall is seen, somewhat improved from the appearance on CT. There does appear to be a small quantity of air within the nondependent portion of the urinary bladder. Superior to the bladder, is high T2-signal intensity area measuring 1.9 cm in greatest diameter. This may be a postoperative small fluid collection. There is a 4.6 x 4.7 x 3.5 cm cystic lesion in the left adnexa. Postoperative fluid collection versus ovarian cyst. There is a 1.2 cm cyst in the right adnexal region. No other abnormal abdominal or pelvic fluid collection is seen. The uterus appears to be surgically absent. No pelvic adenopathy is seen. No inguinal mass or adenopathy is seen. Cortical and medullary bone signal intensity are normal. Post-gadolinium enhanced images show post operative enhancement in the laparotomy incision in the lower abdominal wall and adjacent to and around the bladder wall diffusely. IMPRESSION: 1. Diffuse thickening of the superior wall of bladder. This is overall somewhat improved from the appearance on CT scan from July 21, 2016. 2. A small quantity of air is seen within the urinary bladder. This may reflect recent instrumentation or conceivably enterovesical fistula. 3. There is a small fluid collection, 1.9 cm in greatest diameter, just superior to the dome of the bladder. There is a 4.7 cm cyst in the left adnexa and a 1.2 cm cyst in the right adnexa. Signed by Thomas Berger MD 08/31/2016 03:24 P
== END ==
LOC: M RAD 12:39
PROVIDERS: ATTEND Internal Medicine Medical Oncology
DX: R93.49 Abnormal radiologic findings on diagnostic imaging of other urinary organs (principal); N83.8 Other noninflammatory disorders of ovary, fallopian tube and broad ligament
CPT/HCPCS: 72197; A9576

== ENCOUNTER → 2016-09-08 | Outpatient (CLI) | payer MEDICARE, BC, OTHER ==
--- NOTE | 2016-09-08 11:17 | REP ---
Clinical: History of colon cancer with suspected invasion to the ureter. Technique: Real time thomason scale ultrasound examination of the curved array transducer. Findings: The right kidney is normal in contour, size, echogenicity and reniform shape without hydronephrosis, nephrolithiasis, cystic or mass lesion. Right kidney measures 11.2 x 5.1 x 6.2 cm. The left kidney measures 12.2 x 5.6 x 6.6 cm and mild hydronephrosis as well as 10 mm parapelvic cyst cannot be excluded. No associated nephrolithiasis or mass lesion appreciated. Bladder is incompletely evaluated, but small mass lesion measuring 12 x 10 x 20 mm along the superior margin of the bladder cannot be excluded. Impression: 1. Cannot exclude mild left-sided hydronephrosis and small 10 mm parapelvic cyst. 2. Cannot exclude small mass along the superior margin of the bladder. Signed by Chung Coffman MD 09/08/2016 11:09 A
[2016-09-08 12:02] LABS: ALKALINE PHOSPHATASE 56 U/L (45-117); ALT/SGPT 38 U/L (12-78); ANION GAP 6 MEQ/L (8-16); AST/SGOT 36 U/L (15-37); BILIRUBIN,TOTAL 0.6 MG/DL (0.2-1.0); BLOOD UREA NITROGEN 13 MG/DL (7-18); CALCIUM LEVEL 8.7 MG/DL (8.8-10.2); CARBON DIOXIDE LEVEL 28 MEQ/L (21-32); CHLORIDE LEVEL 109 MEQ/L (98-107); CREATININE FOR GFR 0.66 MG/DL (0.55-1.02); GLOMERULAR FILTRATION RATE > 60.0 (>45); GLUCOSE, FASTING 91 MG/DL (80-110); POTASSIUM SERUM 4.4 MEQ/L (3.5-5.1); SODIUM LEVEL 143 MEQ/L (136-145)
[2016-09-08 12:03] LABS: ALBUMIN 3.1 GM/DL (3.2-5.2); ALBUMIN/GLOBULIN RATIO 0.91 (1.00-1.93); TOTAL PROTEIN 6.5 GM/DL (6.4-8.2)
== END ==
LOC: M LAB 09:54
PROVIDERS: ATTEND Internal Medicine Medical Oncology
DX: N13.30 Unspecified hydronephrosis (principal); N32.0 Bladder-neck obstruction

== ENCOUNTER → 2016-09-09 | Day surgery (SDC) | payer MEDICARE, BC, OTHER ==
[~2016-09-09] VITALS: Ht 167.6 cm; Wt 99.3 kg
[~2016-09-09] MED LIST changes: +HEPARIN SOD (PORCINE) 5000 UNITS/ML VIAL As Ordered ONE; +LIDOCAINE 1% SDV INJ 30 ML VIAL As Ordered ONE; +LIDOCAINE 2% INJ 100 MG/5 ML SDV (FOR ANES.) As Ordered ONE; +LR 1,000 ML IV ONE; +LR 1,000 ML IV SCH; +MIDAZOLAM INJ 2 MG/2 ML VIAL (J2250) As Ordered ONE; +ONDANSETRON 4MG/2ML VIAL (J2405) IV PRN; +PERCOCET 5MG/325MG TAB PO PRN; +PROPOFOL 200 MG/20 ML VIAL As Ordered ONE; +fentaNYL 100 MCG/2 ML INJECTION (J3010) As Ordered ONE; +fentaNYL 100 MCG/2 ML INJECTION (J3010) IV PRN
--- NOTE | 2016-09-09 13:52 | ECGEPIP ---
Stationary ECG Study [facility] Test Date: 2016-09-09 Pat Name: ЕЛЕНА CHRISTIAN Department: Room: - Gender: F [employer]: [facility] : 1950 Requested By: MARY Chris Order Number: [id number] Reading MD: Suly Dinero Measurements Intervals Gorin Rate: 63 P: 15 AZ: 170 QRS: 15 QRSD: 87 T: 2 QT: 416 QTc: 426 Interpretive Statements SINUS RHYTHM ANTERIOR STT ABN STABLE LOW VOLTAGE PRECORDIAL LEADS NEW C/W 03/23/12 NEW INF STTABN Electronically Signed On 09-09-2016 13:51:47 EDT by Suly Dinero
[2016-09-09 13:55] LABS: INR 0.94
[2016-09-09] MEDS: VANCOMYCIN HCL 1,000 MG, VIAL MATE ADAPTER 1 EACH in D5W 250 ML IV ONE ×2 (14:13→14:25)
[2016-09-09 16:20] VITALS: BP 144/72
--- NOTE | 2016-09-09 18:22 | REP ---
Partial chest x-ray: Single view: History: Left hydronephrosis. 2 seconds of fluoroscopy time is reported. Findings: A single last image hold fluoro spot radiograph of the right chest documents central venous catheter tip placement in the expected location of the superior vena cava. Signed by Thomas Berger MD 09/12/2016 10:48 A
--- NOTE | 2016-09-10 13:49 | RO ---
DATE OF PROCEDURE: 09/09/2016 PREPROCEDURE DIAGNOSIS: Need for chemotherapy access. POSTPROCEDURE DIAGNOSIS: Need for chemotherapy access. PROCEDURE PERFORMED: Right internal jugular vein Jtkpun-y-Ebzw placement with ultrasound and fluoroscopic guidance. SURGEON: Dr. Wagner Baca ANESTHESIA: Local of 1% Xylocaine with monitored anesthesia care. INDICATIONS FOR PROCEDURE: Patient is a 66-year-old woman who recently underwent a sigmoid colectomy with findings of carcinoma invading through the wall of the colon to the dome of the bladder with a contained abscess. She is now for chemotherapy and is for placement of an Gnwtbi-F-Jyrm. DESCRIPTION OF PROCEDURE: Operative procedure; The patient was placed supine on the operating table. The patient's upper chest and neck were prepped and draped in a sterile fashion. She received sedation from anesthesia. Local anesthesia was achieved with 1% Xylocaine. The right side of the neck was inspected with the Site-Rite ultrasound, and the internal jugular vein was identified. Patient was placed in a Trendelenburg position to accentuate the distension. 1% Xylocaine was infiltrated, and an 18-gauge needle was then inserted under ultrasound guidance with good return of venous blood. A guidewire was passed. The skin was nicked and a peel-away sheath introducer was inserted. The Dbvqyr-G-Rnwl catheter was then inserted to approximately 20 cm and the sheath was removed. The patient was returned to a flat position. The catheter was flushed with heparinized saline. The catheter was withdrawn to approximately 15 cm at the skin. The location of the catheter was determined using fluoroscopy and was pulled back to approximately 12 cm at the skin surface. Blood aspirated easily and the catheter was flushed with heparinized saline. A second area of local anesthesia was achieved in the infraclavicular fossa. An incision was made transversely, and a subcutaneous pocket was created for placement of the port. The catheter was tunneled down to the port site. The catheter was cut to length and attached to the port using the locking ring. The port was placed in the subcutaneous pocket and sutured to the underlying muscular fascia with two simple sutures of #3-0 Vicryl. The port was accessed and flushed with 100 units/mL heparin solution. The port incision was approximated with some buried #3-0 chromic sutures, and both incisions were then closed with buried #5- 0 Vicryl and Steri-Strips. OpSite dressings were applied. The patient tolerated the procedure well without apparent complication. The port placed was a Bard port, product code number [id number], lot number [id number]. [facility]
== END | disposition home or self-care (01) ==
LOC: M SDC 13:21
PROVIDERS: ATTEND Surgery
DX: Z45.2 Encounter for adjustment and management of vascular access device (principal); C18.9 Malignant neoplasm of colon, unspecified; E66.9 Obesity, unspecified; E78.00 Pure hypercholesterolemia, unspecified; Z86.711 Personal history of pulmonary embolism; Z86.718 Personal history of other venous thrombosis and embolism; Z88.0 Allergy status to penicillin; Z88.5 Allergy status to narcotic agent; Z79.899 Other long term (current) drug therapy; Z79.01 Long term (current) use of anticoagulants
CPT/HCPCS: 36415; 36561; 76000; 85610; 93005; C1788; J2250; J3010; J3370

== ENCOUNTER → 2016-09-12 | Outpatient (REF) | payer MEDICARE, BC, OTHER ==
[~2016-09-12] MED LIST changes: -HEPARIN SOD (PORCINE) 5000 UNITS/ML VIAL As Ordered ONE; -LIDOCAINE 1% SDV INJ 30 ML VIAL As Ordered ONE; -LIDOCAINE 2% INJ 100 MG/5 ML SDV (FOR ANES.) As Ordered ONE; -LR 1,000 ML IV ONE; -LR 1,000 ML IV SCH; -MIDAZOLAM INJ 2 MG/2 ML VIAL (J2250) As Ordered ONE; -ONDANSETRON 4MG/2ML VIAL (J2405) IV PRN; -PERCOCET 5MG/325MG TAB PO PRN; -PROPOFOL 200 MG/20 ML VIAL As Ordered ONE; -fentaNYL 100 MCG/2 ML INJECTION (J3010) As Ordered ONE; -fentaNYL 100 MCG/2 ML INJECTION (J3010) IV PRN
== END ==
LOC: M LAB REF 13:47
PROVIDERS: ATTEND Internal Medicine Medical Oncology
DX: C18.0 Malignant neoplasm of cecum (principal)

== ENCOUNTER → 2016-09-13 | Outpatient (CLI) | payer MEDICARE, BC, OTHER ==
[2016-09-13 17:48] LABS: INR 1.7
== END ==
LOC: M WUC 12:02
PROVIDERS: ATTEND Internal Medicine Pulmonary Disease
DX: Z79.01 Long term (current) use of anticoagulants (principal); Z86.711 Personal history of pulmonary embolism

== ENCOUNTER → 2016-09-16 | Outpatient (CLI) | payer MEDICARE, BC, OTHER ==
[2016-09-16 10:50] LABS: INR 2.15
== END ==
LOC: M LAB 10:02
PROVIDERS: ATTEND Internal Medicine Pulmonary Disease
DX: Z79.01 Long term (current) use of anticoagulants (principal); Z86.711 Personal history of pulmonary embolism

== ENCOUNTER → 2016-09-21 | Outpatient (CLI) | payer MEDICARE, BC, OTHER ==
[2016-09-21 13:22] LABS: INR 3.12
== END ==
LOC: M WUC 09:20
PROVIDERS: ATTEND Internal Medicine Pulmonary Disease
DX: Z86.711 Personal history of pulmonary embolism (principal)

== ENCOUNTER → 2016-09-26 | Outpatient (REF) | payer MEDICARE, OTHER | LOC: M LAB REF 15:03 | PROVIDERS: ATTEND Internal Medicine Medical Oncology | DX: C18.9 Malignant neoplasm of colon, unspecified (principal) ==

== ENCOUNTER → 2016-09-27 | Outpatient (CLI) | payer MEDICARE, OTHER ==
[2016-09-27 17:39] LABS: INR 3.26
== END ==
LOC: M WUC 11:15
PROVIDERS: ATTEND Internal Medicine Pulmonary Disease
DX: Z79.01 Long term (current) use of anticoagulants (principal); Z86.711 Personal history of pulmonary embolism

== ENCOUNTER → 2016-10-05 | Outpatient (CLI) | payer MEDICARE, OTHER ==
[2016-10-05 17:13] LABS: INR 3.16
== END ==
LOC: M WUC 12:11
PROVIDERS: ATTEND Internal Medicine Pulmonary Disease
DX: Z51.81 Encounter for therapeutic drug level monitoring (principal); Z79.01 Long term (current) use of anticoagulants; Z86.711 Personal history of pulmonary embolism; C18.9 Malignant neoplasm of colon, unspecified

== ENCOUNTER → 2016-10-05 | Outpatient (REF) | payer MEDICARE, OTHER | LOC: M LAB REF 13:21 | PROVIDERS: ATTEND Internal Medicine Medical Oncology | DX: C18.9 Malignant neoplasm of colon, unspecified (principal) ==

== ENCOUNTER → 2016-10-06 | Outpatient (CLI) | payer MEDICARE, BC, OTHER ==
[~2016-10-06] MED LIST changes: +ISOVUE-370 76% 100ML VIAL (Q9967) As Ordered ONE
--- NOTE | 2016-10-06 19:00 | REP ---
REASON FOR EXAM: Nasal congestion times three months and history of carcinoma of the colon. COMPARISONS: There are no priors for comparison. TECHNIQUE: 4.5 mm contiguous transaxial sections were obtained from the skull base to the cerebral convexities with thin cuts through the posterior fossa with and without the administration of intravenous contrast. FINDINGS: The ventricles and sulci are consistent with the patient's age. There are no extra-axial fluid collections. There is no mass effect on the non-contrast scan and there are no enhancing mass lesions on the post contrast scan. The deep cerebral white matter is consistent with the patient's age. The orbital and petrous structures, cerebellopontine angles and posterior fossa are unremarkable. The sella turcica, cavernous and paracavernous structures are essentially unremarkable. The visualized portions of the paranasal sinuses and mastoid air cells are clear. IMPRESSION: Essentially unremarkable CT examination of the brain. Signed by Ander Hicks DO 10/06/2016 07:13 P
--- NOTE | 2016-10-06 19:10 | REP ---
REASON: Chronic nasal congestion and history of colon carcinoma. PRIORS: None. In the left maxillary antrum adherent to the medial wall there is a round 1.6 cm sized soft-tissue density consistent with a mucous retention cyst. The paranasal sinuses and mastoid air cells are otherwise clear. The osteomeatal complex is patent bilaterally with intact bilateral hiatus semilunaris. There is paradoxical turning of the middle and right inferior turbinate. There are no Lalo's cells. The cribriform plate and michelle carolyn are intact. There is no evidence of lysis or sclerosis of the bony architecture surrounding the paranasal sinuses. There was no significant nasal septal deviation. The imaged mastoid air cells are clear. IMPRESSION: Left maxillary sinus mucous retention cyst and other findings as described above. Signed by Ander Hicks DO 10/06/2016 07:13 P
== END ==
LOC: M RAD 17:38
PROVIDERS: ATTEND Internal Medicine Medical Oncology
DX: J34.1 Cyst and mucocele of nose and nasal sinus (principal); C26.0 Malignant neoplasm of intestinal tract, part unspecified; R09.81 Nasal congestion
CPT/HCPCS: 70470; 70486; Q9967

== ENCOUNTER → 2016-10-11 | Outpatient (CLI) | payer MEDICARE, BC, OTHER ==
[~2016-10-11] MED LIST changes: -ISOVUE-370 76% 100ML VIAL (Q9967) As Ordered ONE
[2016-10-11 12:53] LABS: INR 3.99
== END ==
LOC: M WUC 09:38
PROVIDERS: ATTEND Internal Medicine Pulmonary Disease
DX: Z51.81 Encounter for therapeutic drug level monitoring (principal); Z79.01 Long term (current) use of anticoagulants; Z86.711 Personal history of pulmonary embolism

== ENCOUNTER → 2016-10-17 | Outpatient (REF) | payer MEDICARE, OTHER | LOC: M LAB REF 14:00 | PROVIDERS: ATTEND Internal Medicine Medical Oncology | DX: D61.818 Other pancytopenia (principal) ==

== ENCOUNTER → 2016-10-18 | Outpatient (CLI) | payer MEDICARE, OTHER ==
[2016-10-18 14:02] LABS: INR 4.32
== END ==
LOC: M WUC 10:25
PROVIDERS: ATTEND Internal Medicine Pulmonary Disease
DX: Z86.711 Personal history of pulmonary embolism (principal); Z79.01 Long term (current) use of anticoagulants

== ENCOUNTER → 2016-10-25 | Outpatient (CLI) | payer MEDICARE, OTHER ==
[2016-10-25 17:16] LABS: INR 2.78
== END ==
LOC: M WUC 11:23
PROVIDERS: ATTEND Internal Medicine Pulmonary Disease
DX: Z79.01 Long term (current) use of anticoagulants (principal); Z86.711 Personal history of pulmonary embolism

== ENCOUNTER → 2016-10-27 | Outpatient (CLI) | payer MEDICARE, BC, OTHER ==
[~2016-10-27] MED LIST changes: +GASTROGRAFIN SOLUTION 30ML (Q9963) As Ordered ONE; +ISOVUE-370 76% 100ML VIAL (Q9967) As Ordered ONE
--- NOTE | 2016-10-27 16:44 | REP ---
CT ABDOMEN AND PELVIS WITH AND WITHOUT CONTRAST: TECHNIQUE: Axial noncontrast images through the abdomen followed by contrast-enhanced images through the abdomen and pelvis using 100 mL Isovue 370 intravenous contrast material, with coronal and sagittal reformations. Visualized lung bases demonstrate minor fibrotic changes. Comparison is made with prior study of 07/21/2016. In the visualized lung bases there is no acute abnormality. The liver appears unremarkable. Patient has had a prior cholecystectomy. I do not see evidence of significant biliary dilatation. Spleen demonstrates a few tiny calcified granulomas. The adrenals and pancreases appear unremarkable. The right kidney demonstrates a tiny subcentimeter cyst in the lower pole. There is no renal calculus bilaterally and there is no hydronephrosis. There are mild scattered atherosclerotic calcifications of the abdominal aorta without aneurysm. I see no adenopathy. There is no free air or free fluid. Left anterior abdominal wall ostomy is noted. I see no bowel wall thickening. In the pelvis there is an oval cystic structure in the left adnexal region measuring 4.8 x 3.4 cm. This is essentially unchanged. Previously noted free fluid in the pelvis has resolved. There is a small loculated area of fluid along the dome of the bladder which measures approximately 3.1 x 1.8 cm. This is similar in size compared to the prior CT study. There is resolution of the previously noted surrounding inflammatory changes. The urinary bladder is only minimally distended and not well evaluated. There is no other evidence of pelvic mass. IMPRESSION: Status-post cholecystectomy. Left abdominal ostomy. Left adnexal cystic structure stable. Adjacent loculated fluid collection along the bladder dome is essentially unchanged in size. The previously noted inflammatory changes and free fluid in the pelvis have resolved. No adenopathy or other evidence of mass. Signed by Ethan Rojas MD 10/28/2016 09:21 A
== END ==
LOC: M RAD 13:57
PROVIDERS: ATTEND Internal Medicine Medical Oncology
DX: C18.9 Malignant neoplasm of colon, unspecified (principal); C78.89 Secondary malignant neoplasm of other digestive organs
CPT/HCPCS: 74178; Q9963; Q9967

== ENCOUNTER → 2016-10-28 | Outpatient (CLI) | payer MEDICARE, BC, OTHER ==
[~2016-10-28] MED LIST changes: -GASTROGRAFIN SOLUTION 30ML (Q9963) As Ordered ONE; -ISOVUE-370 76% 100ML VIAL (Q9967) As Ordered ONE
[2016-10-28 13:12] LABS: INR 3.28
== END ==
LOC: M WUC 10:02
PROVIDERS: ATTEND Internal Medicine Pulmonary Disease
DX: Z79.01 Long term (current) use of anticoagulants (principal); Z86.711 Personal history of pulmonary embolism

== ENCOUNTER → 2016-10-31 | Outpatient (REF) | payer MEDICARE, BC, OTHER | LOC: M LAB REF 08:15 | PROVIDERS: ATTEND Internal Medicine Medical Oncology | DX: C26.0 Malignant neoplasm of intestinal tract, part unspecified (principal) ==

== ENCOUNTER → 2016-11-04 | Outpatient (CLI) | payer MEDICARE, BC, OTHER ==
[2016-11-04 15:54] LABS: INR 4.43
== END ==
LOC: M WUC 10:30
PROVIDERS: ATTEND Internal Medicine Pulmonary Disease
DX: Z79.01 Long term (current) use of anticoagulants (principal); Z86.711 Personal history of pulmonary embolism

== ENCOUNTER → 2016-11-14 | Outpatient (REF) | payer MEDICARE, BC, OTHER ==
[2016-11-14 14:57] LABS: INR 2.41
== END ==
LOC: M LAB REF 13:01
PROVIDERS: ATTEND Internal Medicine Medical Oncology
DX: C18.9 Malignant neoplasm of colon, unspecified (principal)

== ENCOUNTER → 2016-11-15 | Outpatient (REF) | payer MEDICARE, BC, OTHER ==
[2016-11-15 13:06] LABS: INR 2.55
== END ==
LOC: M LAB REF 10:36
PROVIDERS: ATTEND Internal Medicine Medical Oncology
DX: C18.9 Malignant neoplasm of colon, unspecified (principal)

== ENCOUNTER → 2016-11-16 | Outpatient (REF) | payer MEDICARE, BC, OTHER ==
[2016-11-16 13:47] LABS: INR 2.85
== END ==
LOC: M LAB REF 12:26
PROVIDERS: ATTEND Internal Medicine Medical Oncology
DX: I82.502 Chronic embolism and thrombosis of unspecified deep veins of left lower extremity (principal)

== ENCOUNTER → 2016-11-21 | Outpatient (REF) | payer MEDICARE, OTHER ==
[2016-11-21 13:38] LABS: INR 2.38
== END ==
LOC: M LAB REF 12:53
PROVIDERS: ATTEND Family Medicine
DX: I82.502 Chronic embolism and thrombosis of unspecified deep veins of left lower extremity (principal); Z79.01 Long term (current) use of anticoagulants

== ENCOUNTER → 2016-12-05 | Outpatient (CLI) | payer MEDICARE, OTHER ==
[2016-12-05 13:39] LABS: INR 1.66
== END ==
LOC: M WUC 10:18
PROVIDERS: ATTEND Internal Medicine Pulmonary Disease
DX: Z79.01 Long term (current) use of anticoagulants (principal); Z86.711 Personal history of pulmonary embolism

== ENCOUNTER → 2016-12-06 | Outpatient (REF) | payer MEDICARE, OTHER | LOC: M LAB REF 12:21 | PROVIDERS: ATTEND Internal Medicine Medical Oncology | DX: C26.0 Malignant neoplasm of intestinal tract, part unspecified (principal) ==

== ENCOUNTER → 2016-12-19 | Outpatient (REF) | payer MEDICARE, OTHER ==
[2016-12-19 14:18] LABS: INR 2.27
== END ==
LOC: M LAB REF 13:15
PROVIDERS: ATTEND Internal Medicine Medical Oncology
DX: C50.919 Malignant neoplasm of unspecified site of unspecified female breast (principal)

== ENCOUNTER 2017-02-23 11:34 | Outpatient (CLI) | payer MEDICARE, BC, OTHER ==
[~2017-02-23] VITALS: Ht 167.6 cm; Wt 93.0 kg
[~2017-02-23 11:34] MED LIST changes: -IMOD2TAB16 PO; -METO1TAB87 PO
[2017-02-23 11:50] VITALS: BP 136/71
[2017-02-23] MEDS: diphenhydrAMINE 50 MG CAP PO ONE (13:18)
[2017-02-23] MEDS: ACETAMINOPHEN TAB 650MG DOSE (2X325MG) PO ONE (13:18)
[2017-02-23] MEDS: LOPERAMIDE 2 MG CAP PO ONE (15:58)
[2017-02-23] MEDS: SODIUM CHLORIDE 0.9% INJ 10 ML SYR IV PRN (17:51)
[2017-02-23] MEDS ORDERED: IMOD2TAB16 PO (18:05)
[2017-02-23] MEDS ORDERED: METO1TAB87 PO (18:05)
[2017-02-24] MEDS ORDERED: SODIUM CHLORIDE 0.9% INJ 10 ML SYR IV SCH (09:00)
== END 2017-02-23 18:15 | disposition home or self-care (01) ==
LOC: M OPCLIPED 11:34 → M PED 11:37 → M OPCLIPED 18:15
PROVIDERS: ATTEND Internal Medicine Medical Oncology
DX: D62 Acute posthemorrhagic anemia (principal); Z79.899 Other long term (current) drug therapy; Z79.84 Long term (current) use of oral hypoglycemic drugs; Z88.0 Allergy status to penicillin; C18.9 Malignant neoplasm of colon, unspecified
CPT/HCPCS: 36430; 82378; 86850; 86900; 86901; 86920; P9016

== ENCOUNTER → 2017-02-23 | Outpatient (REF) | payer MEDICARE, OTHER ==
[~2017-02-23] MED LIST changes: +IMOD2TAB16 PO; +METO1TAB87 PO
== END ==
LOC: M LAB REF 13:14
PROVIDERS: ATTEND Internal Medicine Medical Oncology
DX: C18.9 Malignant neoplasm of colon, unspecified (principal)

== ENCOUNTER → 2017-02-28 | Outpatient (REF) | payer MEDICARE, OTHER ==
[2017-02-28 13:45] LABS: LACTIC ACID SEPSIS PROTOCOL 1.2 MMOL/L (0.4-2.0)
== END ==
LOC: M LAB REF 13:05
DX: C18.9 Malignant neoplasm of colon, unspecified (principal)

== ENCOUNTER → 2017-02-28 | Outpatient (CLI) | payer MEDICARE, OTHER ==
[~2017-02-28] MED LIST changes: +COUM1TAB17 PO; +COUM2TAB22 PO; +DITR5TAB PO; +IMOD2TAB16 PO; +ISOVUE-370 76% 100ML VIAL (Q9967) As Ordered ONE; +METO1TAB87 PO; +TYLE325T5 PO
--- NOTE | 2017-02-28 14:29 | REP ---
Clinical: Abdominal pain. Technique: Axial contrast enhanced images from the lung bases to the pubic symphysis using oral (per protocol) and 100 ml Isovue 370 intravenous contrast material with coronal and sagittal re-formations. Comparison: 10/27/2016. Findings: Lung bases demonstrate minimal basilar atelectasis. Visualized heart and pericardium are normal. Liver, spleen, pancreas, and bilateral adrenal glands are normal. The patient is status post cholecystectomy. Postsurgical changes include partial bowel resection, diverting ileostomy, and bilateral ureteral stent placement along with evidence for prior hysterectomy and surgical drain in the pelvis. There is no evidence for bowel obstruction or obvious acute inflammatory process. The kidneys demonstrate bilateral hydronephrosis along with perinephric and left retroperitoneal stranding extending into the pelvis which is nonspecific and possibly related to prior surgery. No free air. Farr catheter identified within bladder. No ascites or pelvic fluid. Previously identified left pelvic cyst/collections in the have resolved. A small amount of fluid is identified in the subcutaneous tissues at the surgical site just below multiple skin angel (images 115 - 129). Musculoskeletal structures are intact without focal osseous abnormality. Impression: 1. Trace basilar atelectasis. 2. Postsurgical changes involving the abdomen and pelvis as described above. 3. No ascites, free air, or drainable collection/abscess identified. Signed by Chung Coffman MD 02/28/2017 02:21 P
== END ==
LOC: M RAD 13:38
PROVIDERS: ATTEND Internal Medicine Medical Oncology
DX: C18.9 Malignant neoplasm of colon, unspecified (principal); J98.11 Atelectasis; R63.0 Anorexia; R53.83 Other fatigue; R68.81 Early satiety; Z93.3 Colostomy status; Z98.890 Other specified postprocedural states
CPT/HCPCS: 74177; 83605; Q9967

== ENCOUNTER → 2017-03-01 | Outpatient (REF) | payer MEDICARE, OTHER | LOC: M LAB REF 14:13 | DX: E86.0 Dehydration (principal); R63.3 Feeding difficulties; K91.1 Postgastric surgery syndromes; R39.9 Unspecified symptoms and signs involving the genitourinary system | CPT/HCPCS: 87040 ==

== ENCOUNTER 2017-03-02 12:07 | Emergency (ER) | payer MEDICARE, BC, OTHER ==
[2017-03-02 13:25] LABS: BASO % 0.2 % (0.0-1.0); EOS # 0.1 10^3/uL (0.0-0.50); EOS % 2.1 % (0.0-3.0); IMMATURE GRANULOCYTE % 0.2 % (0-0); LYMPH # 0.4 10^3/uL (1.5-4.5); MEAN CORPUSCULAR HEMOGLOBIN 29.3 pg (27.0-33.0); MEAN CORPUSCULAR HGB CONC 32.1 g/dl (32.0-36.5); MEAN CORPUSCULAR VOLUME 91.2 fl (80.0-96.0); MONO # 0.8 10^3/uL (0.0-0.8); MONO % 14.8 % (0.0-5.0); NEUTROPHILS # 4.2 10^3/uL (1.8-7.7); NEUTROPHILS % 75.7 % (36.0-66.0); PLATELET COUNT, AUTOMATED 332 10^3/uL (150-450); RED CELL DISTRIBUTION WIDTH 15.2 % (11.5-14.5); WHITE BLOOD COUNT 5.6 10^3/uL (4.0-10.0)
[2017-03-02] MEDS: NS 1,000 ML IV ×2 (13:28→13:29)
[2017-03-02] MEDS ORDERED: ISOVUE-370 76% 100ML VIAL (Q9967) As Ordered (13:55)
[2017-03-02 13:56] LABS: ANION GAP 9 MEQ/L (8-16); BLOOD UREA NITROGEN 25 MG/DL (7-18); CALCIUM LEVEL 9.3 MG/DL (8.8-10.2); CARBON DIOXIDE LEVEL 26 MEQ/L (21-32); CHLORIDE LEVEL 100 MEQ/L (98-107); CREATININE FOR GFR 1.09 MG/DL (0.55-1.02); GLOMERULAR FILTRATION RATE 53.1 (>45); GLUCOSE, FASTING 122 MG/DL (80-110); POTASSIUM SERUM 3.6 MEQ/L (3.5-5.1); SODIUM LEVEL 135 MEQ/L (136-145)
[2017-03-02 14:00] LABS: LACTIC ACID SEPSIS PROTOCOL 1.7 MMOL/L (0.4-2.0)
[2017-03-02 15:13] LABS: KETONE, URINE AUTO RFX NEGATIVE (NEGATIVE); NITRITE, URINE AUTO RFX NEGATIVE (NEGATIVE); RBC, URINE AUTO RFX 122 /HPF (0-3); SQUAM EPITHELIAL CELL UR AURFX 1 /HPF (0-6)
[2017-03-02 15:14] LABS: LEUKOCYTE ESTERASE UR AUTO RFX 3+ (NEGATIVE); WBC, URINE AUTO RFX TNTC /HPF (0-3)
[2017-03-02 17:24] LABS: SOURCE, BODY FLUID CREATININE OTHER
== END 2017-03-02 19:02 | disposition home or self-care (01) ==
LOC: M ED 12:07
DX: T83.031A Leakage of indwelling urethral catheter, initial encounter (principal); C26.0 Malignant neoplasm of intestinal tract, part unspecified; Z93.4 Other artificial openings of gastrointestinal tract status; Z93.3 Colostomy status; Y73.2 Prosthetic and other implants, materials and accessory gastroenterology and urology devices associated with adverse incidents; Z86.718 Personal history of other venous thrombosis and embolism; Z86.711 Personal history of pulmonary embolism; Z79.01 Long term (current) use of anticoagulants; Z79.899 Other long term (current) drug therapy; Z88.5 Allergy status to narcotic agent; Z88.0 Allergy status to penicillin
CPT/HCPCS: Q9967

== ENCOUNTER 2017-03-04 11:25 | Outpatient (CLI) | payer MEDICARE, BC, OTHER ==
[2017-03-04] MEDS ORDERED: SODIUM CHLORIDE 0.9% INJ 10 ML SYR IV (11:45)
[2017-03-04] MEDS: NS 1,000 ML IV (11:47)
[2017-03-05] MEDS ORDERED: SODIUM CHLORIDE 0.9% INJ 10 ML SYR IV (09:00)
== END 2017-03-04 13:10 | disposition home or self-care (01) ==
LOC: M INFU 11:25 → M MSPAV 11:26 → M INFU 13:10
DX: E86.0 Dehydration (principal); Z88.5 Allergy status to narcotic agent; Z88.0 Allergy status to penicillin; Z79.01 Long term (current) use of anticoagulants; Z79.899 Other long term (current) drug therapy
CPT/HCPCS: 96360

== ENCOUNTER 2017-03-05 11:20 | Outpatient (CLI) | payer MEDICARE, BC, OTHER ==
[2017-03-05] MEDS: NS 1,000 ML IV (11:45)
== END 2017-03-05 13:46 | disposition home or self-care (01) ==
LOC: M INFU 11:20 → M MS5PR 11:21 → M INFU 13:46
DX: E86.0 Dehydration (principal); Z88.5 Allergy status to narcotic agent; Z88.0 Allergy status to penicillin; Z79.01 Long term (current) use of anticoagulants; Z79.899 Other long term (current) drug therapy
CPT/HCPCS: 96374

== ENCOUNTER → 2017-03-10 | Outpatient (REF) | payer MEDICARE, OTHER ==
[2017-03-10 16:02] LABS: APPEARANCE, URINE TURBID (CLEAR); BACTERIA, URINE AUTO 3+ (NEGATIVE); BILIRUBIN, URINE AUTO NEGATIVE (NEGATIVE); BLOOD, URINE BLOOD 3+ (NEGATIVE); COLOR, URINE YELLOW (YELLOW); GLUCOSE, URINE (UA) AUTO NEGATIVE (NEGATIVE); KETONE, URINE AUTO NEGATIVE (NEGATIVE); LEUKOCYTE ESTERASE, URINE AUTO 2+ (NEGATIVE); MUCUS, URINE SMALL (NEGATIVE); NITRITE, URINE AUTO NEGATIVE (NEGATIVE); PROTEIN, URINE AUTO 2+ mg/dL (NEGATIVE); RBC, URINE AUTO TNTC /HPF (0-3); SPECIFIC GRAVITY URINE AUTO 1.018 (1.002-1.035); SQUAMOUS EPITHELIAL CELL UR AU 3 /HPF (0-6); UROBILINOGEN, URINE AUTO 0.2 mg/dL (0.0-2.0); WBC, URINE AUTO TNTC /HPF (0-3)
== END ==
LOC: M LAB REF 12:48
DX: C18.9 Malignant neoplasm of colon, unspecified (principal)
CPT/HCPCS: 81001

== ENCOUNTER → 2017-05-02 | Outpatient (CLI) | payer MEDICARE, BC, OTHER | LOC: M PLARAD 15:23 | DX: C18.9 Malignant neoplasm of colon, unspecified (principal); Z98.890 Other specified postprocedural states; N13.30 Unspecified hydronephrosis; Z93.2 Ileostomy status | CPT/HCPCS: 78815 ==

== ENCOUNTER → 2017-05-05 | Outpatient (CLI) | payer MEDICARE, BC, OTHER ==
[~2017-05-05] MED LIST changes: -/ESCI10TA PO; -ASPIRIN; -ASPIRIN PO; -CEPH2CAP PO; -CIPR-249 PO; -COUM1TAB14 PO; -COUM1TAB17 PO; -COUM2TAB22 PO; -CRES5TAB PO; -DITR5TAB PO; -ENOX100I3 IM; -FLAG500T PO; +GASTROGRAFIN SOLUTION 30ML (Q9963) As Ordered; -IMOD2TAB16 PO; -ISOVUE-370 76% 100ML VIAL (Q9967) As Ordered ONE; -LOVE0.8I SC; -METO1TAB87 PO; -PROP10IN IV; -ROSU5TAB PO; -TYLE325T5 PO; -VICO5TA PO; -VIT D PO; -WARF-23 PO; -WARF4TAB52 PO; -WARF5VL PO; -XOPEAER IN
== END ==
LOC: M RAD 06:48
DX: C18.9 Malignant neoplasm of colon, unspecified (principal)
CPT/HCPCS: Q9963

== ENCOUNTER 2017-05-16 11:16 | Emergency (ER) | payer MEDICARE, BC, OTHER ==
[2017-05-16 13:20] LABS: BASO % 0.2 % (0.0-1.0); EOS % 0.7 % (0.0-3.0); HEMOGLOBIN 10.7 g/dl (12.0-16.0); IMMATURE GRANULOCYTE % 0.2 % (0-3.0); LYMPH # 0.5 10^3/uL (1.5-4.5); LYMPH % 12.7 % (24.0-44.0); MEAN CORPUSCULAR HEMOGLOBIN 27.9 pg (27.0-33.0); MEAN CORPUSCULAR HGB CONC 32.4 g/dl (32.0-36.5); MEAN CORPUSCULAR VOLUME 86.2 fl (80.0-96.0); MONO # 0.6 10^3/uL (0.0-0.8); MONO % 13.4 % (0.0-5.0); NEUTROPHILS # 3.1 10^3/uL (1.8-7.7); NEUTROPHILS % 72.8 % (36.0-66.0); PLATELET COUNT, AUTOMATED 228 10^3/uL (150-450); RED BLOOD COUNT 3.83 10^6/uL (4.00-5.40); RED CELL DISTRIBUTION WIDTH 16.8 % (11.5-14.5); WHITE BLOOD COUNT 4.2 10^3/uL (4.0-10.0)
[2017-05-16 13:30] LABS: AMORPHOUS SEDIMENT RFX MODERATE (NEGATIVE); KETONE, URINE AUTO RFX NEGATIVE (NEGATIVE); LEUKOCYTE ESTERASE UR AUTO RFX 2+ (NEGATIVE); MUCUS, URINE RFX SMALL (NEGATIVE); NITRITE, URINE AUTO RFX NEGATIVE (NEGATIVE); RBC, URINE AUTO RFX 107 /HPF (0-3); SPECIFIC GRAVITY UR AUTO RFX 1.015 (1.002-1.035); SQUAM EPITHELIAL CELL UR AURFX 2 /HPF (0-6); WBC, URINE AUTO RFX 50 /HPF (0-3)
[2017-05-16 13:51] LABS: ANION GAP 10 MEQ/L (8-16); BLOOD UREA NITROGEN 15 MG/DL (7-18); C REACTIVE PROTEIN QUANTITATIV 4.29 MG/DL (0.00-0.30); CALCIUM LEVEL 9.1 MG/DL (8.8-10.2); CARBON DIOXIDE LEVEL 25 MEQ/L (21-32); CHLORIDE LEVEL 101 MEQ/L (98-107); CREATININE FOR GFR 1.19 MG/DL (0.55-1.30); GLUCOSE, FASTING 96 MG/DL (70-100); POTASSIUM SERUM 3.2 MEQ/L (3.5-5.1); SODIUM LEVEL 136 MEQ/L (136-145)
[2017-05-16] MEDS ORDERED: ISOVUE-370 76% 100ML VIAL (Q9967) As Ordered (13:54)
[2017-05-16 13:55] LABS: LACTIC ACID SEPSIS PROTOCOL 1.3 MMOL/L (0.4-2.0)
[2017-05-16 14:02] LABS: ERYTHROCYTE SEDIMENTATION RATE 70 mm/hr (0-30)
[2017-05-16 14:40] LABS: INFLUENZA A AMPLIFICATION NEGATIVE (NEGATIVE); INFLUENZA B AMPLIFICATION NEGATIVE (NEGATIVE)
[2017-05-17] MEDS ORDERED: SODIUM CHLORIDE 0.9% INJ 10 ML SYR IV (09:00)
== END 2017-05-16 15:27 | disposition home or self-care (01) ==
LOC: M ED 11:16
DX: N39.0 Urinary tract infection, site not specified (principal); R10.9 Unspecified abdominal pain; Z98.890 Other specified postprocedural states; K57.92 Diverticulitis of intestine, part unspecified, without perforation or abscess without bleeding; Z85.038 Personal history of other malignant neoplasm of large intestine; Z86.711 Personal history of pulmonary embolism; Z88.0 Allergy status to penicillin; Z88.5 Allergy status to narcotic agent; Z79.899 Other long term (current) drug therapy; Z79.01 Long term (current) use of anticoagulants
CPT/HCPCS: Q9967

== ENCOUNTER → 2017-05-29 | Outpatient (REF) | payer MEDICARE, BC, OTHER ==
[2017-05-30 11:04] LABS: CARCINOEMBRYONIC ANTIGEN < 0.5 NG/ML (<2.5)
== END ==
LOC: M LAB REF 13:50
DX: C18.9 Malignant neoplasm of colon, unspecified (principal)
CPT/HCPCS: 82378

== ENCOUNTER → 2017-07-07 | Outpatient (REF) | payer MEDICARE, BC, OTHER | LOC: M LAB REF 13:31 | DX: Z79.899 Other long term (current) drug therapy (principal) | CPT/HCPCS: 84443 ==

== ENCOUNTER → 2017-08-03 | Outpatient (REF) | payer MEDICARE, BC, OTHER | LOC: M LAB REF 19:59 | DX: C79.11 Secondary malignant neoplasm of bladder (principal); Z79.899 Other long term (current) drug therapy; C18.6 Malignant neoplasm of descending colon | CPT/HCPCS: 84443 ==

== ENCOUNTER → 2017-08-17 | Outpatient (REF) | payer MEDICARE, BC, OTHER | LOC: M LAB REF 13:17 | DX: C18.6 Malignant neoplasm of descending colon (principal); C79.11 Secondary malignant neoplasm of bladder; E07.9 Disorder of thyroid, unspecified | CPT/HCPCS: 84443 ==

== ENCOUNTER → 2017-08-31 | Outpatient (REF) | payer MEDICARE, OTHER ==
[2017-09-01 08:33] LABS: CARCINOEMBRYONIC ANTIGEN < 0.5 NG/ML (<2.5)
== END ==
LOC: M LAB REF 13:17
DX: C18.6 Malignant neoplasm of descending colon (principal); C79.11 Secondary malignant neoplasm of bladder
CPT/HCPCS: 82378

== ENCOUNTER → 2017-09-19 | Outpatient (CLI) | payer MEDICARE, OTHER, BC | LOC: M PLARAD 08:28 | DX: C18.9 Malignant neoplasm of colon, unspecified (principal); Z93.3 Colostomy status | CPT/HCPCS: 78815 ==

== ENCOUNTER → 2017-10-26 | Outpatient (REF) | payer MEDICARE, OTHER | LOC: M LAB REF 13:36 | DX: Z79.899 Other long term (current) drug therapy (principal); C18.6 Malignant neoplasm of descending colon; C79.11 Secondary malignant neoplasm of bladder | CPT/HCPCS: 84443 ==

== ENCOUNTER → 2017-11-23 | Outpatient (REF) | payer MEDICARE, OTHER ==
[2017-11-24 11:00] LABS: CARCINOEMBRYONIC ANTIGEN < 0.5 NG/ML (<2.5)
== END ==
LOC: M LAB REF 14:00
DX: C18.6 Malignant neoplasm of descending colon (principal); C79.11 Secondary malignant neoplasm of bladder
CPT/HCPCS: 82378

== ENCOUNTER → 2017-11-29 | Outpatient (REF) | payer MEDICARE, OTHER ==
[2017-12-01 11:06] LABS: CARCINOEMBRYONIC ANTIGEN 0.6 NG/ML (<2.5)
== END ==
LOC: M LAB REF 13:20
DX: C18.6 Malignant neoplasm of descending colon (principal); C79.11 Secondary malignant neoplasm of bladder
CPT/HCPCS: 82378

== ENCOUNTER → 2018-02-13 | Outpatient (CLI) | payer MEDICARE, BC, OTHER | LOC: M PLARAD 09:57 | DX: C18.9 Malignant neoplasm of colon, unspecified (principal); Z98.890 Other specified postprocedural states | CPT/HCPCS: 78815 ==

== ENCOUNTER → 2018-03-30 | Outpatient (CLI) | payer MEDICARE, BC, OTHER ==
[~2018-03-30] MED LIST changes: +/ESCI10TA PO; +ASPIRIN; +ASPIRIN PO; +CEPH2CAP PO; +CIPR-249 PO; +COUM1TAB14 PO; +COUM1TAB17 PO; +COUM2TAB22 PO; +COUM6TAB PO; +CRES5TAB PO; +DITR5TAB PO; +EMLA CREAM 5GM (LIDOCAINE/PRILOCAINE) As Ordered ONE; +ENOX100I3 IM; +FLAG500T PO; +FLUC100T PO; -GASTROGRAFIN SOLUTION 30ML (Q9963) As Ordered; +GASTROGRAFIN SOLUTION 30ML (Q9963) As Ordered ONE; +IMOD2TAB16 PO; +ISOVUE-370 76% 100ML VIAL (Q9967) As Ordered ONE; +LOMO2.5T PO; +LOVE0.6I2 SC; +LOVE0.8I SC; +METO1TAB32 PO; +METO1TAB87 PO; +OMEP20CA3 PO; +PRED10PA2 PO; +PRED10TA2 PO; +PROP10IN IV; +ROSU5TAB4 PO; +TYLE325T5 PO; +VICO5TA PO; +VIT D PO; +WARF-23 PO; +WARF4TAB52 PO; +WARF5VL PO; +XOPEAER IN
--- NOTE | 2018-03-30 16:21 | REP ---
CT abdomen and pelvis with IV and oral contrast: History: Metastatic colon cancer with bladder involvement. New vaginal drainage. The patient gives a history of cystectomy, hysterectomy, cholecystectomy, appendectomy, colostomy and ileostomy for urinary diversion. Comparison CT study May 16, 2017. CT contrast dose: A 100 ml of intravenous Isovue 370. CT findings: Digital preliminary judicial registrar radiograph is unremarkable. The lung bases are clear on axial CT images. There is mild diffuse fatty infiltration of the liver. No focal liver mass lesion is seen. No adrenal lesion is observed. The pancreas is unremarkable. No renal mass is seen. No evidence of hydronephrosis. There is a parastomal hernia associated with the left lower quadrant colostomy and another associated with the right lower quadrant ileostomy. The peristomal hernia on the right transmits a loop of unobstructed small bowel. On the left, there is also a loop of unobstructed small bowel in the hernia sac. The left lower quadrant colostomy is new when compared with the prior study. No retroperitoneal mass or adenopathy is observed. No pelvic adenopathy is seen. 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 No pelvic mass is seen. No evidence of abscess or fistula by CT in the perineum. Uterus and urinary bladder are surgically absent. No bony destructive lesion is seen. Impression: Extensive postsurgical changes as noted above. No evidence of mass or adenopathy in the abdomen or pelvis. Electronically Signed by Thomas Berger MD 03/30/2018 04:46 P
== END ==
LOC: M RAD 11:35
PROVIDERS: ATTEND Internal Medicine Medical Oncology
DX: C18.9 Malignant neoplasm of colon, unspecified (principal); C79.11 Secondary malignant neoplasm of bladder; C50.919 Malignant neoplasm of unspecified site of unspecified female breast
CPT/HCPCS: 74177; Q9963; Q9967

== ENCOUNTER → 2018-06-01 | Outpatient (REF) | payer MEDICARE, OTHER ==
[~2018-06-01] MED LIST changes: -EMLA CREAM 5GM (LIDOCAINE/PRILOCAINE) As Ordered ONE; -GASTROGRAFIN SOLUTION 30ML (Q9963) As Ordered ONE; -ISOVUE-370 76% 100ML VIAL (Q9967) As Ordered ONE
== END ==
LOC: M SMT 17:13
PROVIDERS: ATTEND Specialist
DX: N89.8 Other specified noninflammatory disorders of vagina (principal)

== ENCOUNTER → 2018-08-21 | Outpatient (CLI) | payer MEDICARE, BC, OTHER ==
[~2018-08-21] MED LIST changes: -/ESCI10TA PO; +ACET1TAB37 PO; +LEXA1TAB PO
--- NOTE | 2018-08-21 13:23 | REP ---
PET/CT: HISTORY: Restaging colon carcinoma. COMPARISONS: Comparison PET-CT study is from February 13, 2018. TECHNIQUE: 49 minutes following the intravenous injection of a 8.5 and mCi dose of F-18 FDG, three-dimensional PET scintigraphy is acquired from the skull base to the proximal thighs. Triplanar noncontrast CT scanning is acquired through the same anatomic range for attenuation correction, and image registration with scan parameters optimized to minimize radiation exposure to the patient. PET scintigraphy and CT datasets were fused and displayed on a workstation with multiplanar and projection display capability. PET/CT FINDINGS: Head and neck soft tissues are unremarkable. There is no abnormal hypermetabolic uptake in the chest. Right-sided Screak-W-Nzjw catheter is again seen. There are granulomatous calcifications in the right hilus. In the abdomen and pelvis, previously noted colostomy, ileostomy, and cholecystectomy changes are again visualized. There are parastomal bowel herniations bilaterally in the anterior abdominal wall. No suspicious hypermetabolic uptake is observed in the abdomen or pelvis. No abnormal skeletal hypermetabolic uptake is seen. IMPRESSION: Negative PET scintigraphy. Electronically Signed by Thomas Berger MD 08/21/2018 01:29 P
== END ==
LOC: M PLARAD 07:47
PROVIDERS: ATTEND Internal Medicine Medical Oncology
DX: C18.6 Malignant neoplasm of descending colon (principal)
CPT/HCPCS: 78815; A9552

== ENCOUNTER → 2018-12-28 | Outpatient (CLI) | payer MEDICARE, BC, OTHER ==
[~2018-12-28] MED LIST changes: +GASTROGRAFIN SOLUTION 30ML (Q9963) As Ordered ONE; +ISOVUE-370 76% 100ML VIAL (Q9967) As Ordered ONE; -OMEP20CA3 PO; +OMEP20CA4 PO; -ROSU5TAB4 PO; +ROSU5TAB5 PO
--- NOTE | 2018-12-28 16:53 | REP ---
HISTORY: Colon carcinoma. COMPARISON: Multiple, the latest 03/30/2018. CONTRAST: 100 mL Isovue-370. The liver, spleen, pancreas, adrenal glands and kidneys are unchanged. The abdominal aorta and periaortic regions are unchanged. The bowel loops and their mesenteries are unchanged. The anterior abdominal wall is unchanged. Parasternal hernia with left lower quadrant colostomy and right lower quadrant ileostomy unchanged. No evidence of intestinal obstruction. No free fluid or free air in the abdomen. No change in the appearance of the pelvis. No mass or adenopathy. There is no free fluid or free air. Bone window technique throughout the examination shows no significant change in the appearance of the osseous structures. IMPRESSION: There has been no significant change when compared to the prior CT examination of the abdomen and pelvis of 03/30/2018. There is no evidence of acute or recurrent disease. Electronically Signed by Ander Hicks DO 12/31/2018 02:24 P
--- NOTE | 2018-12-28 16:55 | REP ---
HISTORY: Metastatic colon carcinoma. COMPARISON: Multiple, the latest 08/18/2016. CONTRAST: 100 mL Isovue-370. The mediastinum and pulmonary pauline are unchanged showing no evidence of a mass or adenopathy. There are no pleural or pericardial effusions. There is no significant change in the appearance of the imaged osseous structures. Evaluation of the lung bolton show them to be stable and without evidence of a new abnormal nodule, mass or opacities. IMPRESSION: Stable CT findings. There is no evidence of acute disease. Electronically Signed by Ander Hicks DO 12/31/2018 02:24 P
== END ==
LOC: M RAD 12:04
PROVIDERS: ATTEND Internal Medicine Medical Oncology
DX: C18.9 Malignant neoplasm of colon, unspecified (principal)
CPT/HCPCS: 71260; 74177; Q9963; Q9967

== ENCOUNTER → 2019-04-16 | Outpatient (CLI) | payer MEDICARE, BC ==
[~2019-04-16] MED LIST changes: -GASTROGRAFIN SOLUTION 30ML (Q9963) As Ordered ONE; -ISOVUE-370 76% 100ML VIAL (Q9967) As Ordered ONE; +OMEP1CAP73 PO; -OMEP20CA4 PO
--- NOTE | 2019-04-16 17:34 | REPMRS ---
Patient History The patient states she has not had a clinical breast exam in over a year. Patient is postmenopausal, has history of colorectal cancer at age 66, had previous chemotherapy at age 66, and is nulliparous. Family history of CLL cancer at age 64 in sister, melanoma at age 98 in father[facility]: April 16, 2019 - Exam #: [id number] Bilateral CC and MLO view(s) were taken. Technologist: Cyndy Ortiz, Technologist Prior study comparison: February 16, 2018, bilateral digital woman screen mammo, performed at [facility]. May 21, 2013, bilateral digital woman screen mammo, performed at [facility]. FINDINGS: The breast tissue is extremely dense which could obscure a lesion on mammography. An Bpoyln-X-Kuhd catheter is seen projecting over a portion of the right breast. Scattered benign appearing calcifications are seen bilaterally. There is a grouping of polymorphic microcalcifications in dense breast stroma in the region of the upper outer quadrant of the right breast which merits further evaluation. There is an extremely dense symmetrical pattern of residual fibroglandular tissue. There has been no other change in the appearance of the mammogram from the previous studies. There is no other interval development of dominant mass, archetectural distortion, or grouped microcalcifications suggestive of malignancy. 3-D tomosynthesis shows no additional findings. Assessment: BI-RADS/ACR category 0 mammogram, Incomplete: Need additional imaging evaluation and/or prior mammograms for comparison. Recommendation Special view mammogram of the right breast. This patient's Lifetime Breast Cancer RIsk is estimated at 8.1 %. This mammogram was interpreted with the aid of an FDA-approved computer-aided dectection system. Electronically Signed By: Edgardo Berger MD 04/16/19 [id number]
== END ==
LOC: M WHC 15:24
PROVIDERS: ATTEND Family Medicine
DX: Z12.31 Encounter for screening mammogram for malignant neoplasm of breast (principal)

== ENCOUNTER → 2019-04-22 | Outpatient (CLI) | payer MEDICARE, BC ==
--- NOTE | 2019-04-22 09:23 | REP ---
DIGITAL DIAGNOSTIC UNILATERAL RIGHT BREAST MAMMOGRAPHY WITH CAD: FOUR VIEWS. HISTORY: Screening mammography, April 16, 2019 BI-RADS category 0 because of regionally grouped microcalcifications in the upper outer quadrant of the right breast for which diagnostic imaging was recommended. Comparison studies of 2018 and 2017. MAMMOGRAPHIC FINDINGS: Magnified focal spot compression craniocaudal, mediolateral, and MLO views confirm the presence of a grouping of predominantly punctate microcalcifications in the upper outer quadrant. There is an Xmectj-H-Kzcl catheter reservoir projecting in the right axilla. IMPRESSION: BIRADS 4: BI-RADS/ACR category 4 mammogram. Suspicious Abnormality - biopsy should be considered. BIRADS category 4 suspicious right breast imaging. Stereotactic needle biopsy recommended for microcalcifications upper outer quadrant, right breast. This mammogram was interpreted with the aid of an FDA-approved computer-aided detection system. The patient letter being requested is M4, dense.
== END ==
LOC: M WHC 08:05
PROVIDERS: ATTEND Family Medicine
DX: Z12.31 Encounter for screening mammogram for malignant neoplasm of breast (principal); N64.9 Disorder of breast, unspecified

== ENCOUNTER → 2019-05-16 | Outpatient (CLI) | payer MEDICARE, BC ==
--- NOTE | 2019-05-16 17:28 | REP ---
Focused left breast sonography: History: Palpable mass left breast upper outer quadrant. Comparison mammography April 16, 2019 and right breast mammography April 22, 2019. Sonographic findings: Scanning in the upper outer quadrant of the left breast is performed. In the axillary region there are two normal-appearing lymph nodes with echogenic fatty replaced hilar architecture. The largest of these measures 2.9 x 0.7 x 1.1 cm. There is also a 0.9 x 0.4 x 0.9 cm benign appearing lymph node. In the area of the palpable abnormality, there is echogenic ridge-like fibroglandular tissue without mass-like features. No architectural distortion is seen. There are some areas of acoustic shadowing. Heterogeneous fibroglandular architecture pattern. Impression: BIRADS category 2 benign findings. Heterogeneous fibroglandular architecture is seen. No mass or cyst identified. Clinical follow-up is advised. This negative report should not dissuade one from biopsy of a palpable lesion depending on its clinical characteristics.
== END ==
LOC: M WHC 14:05
PROVIDERS: ATTEND Surgery
DX: N63.20 Unspecified lump in the left breast, unspecified quadrant (principal)

== ENCOUNTER → 2019-05-20 | Outpatient (CLI) | payer MEDICARE, BC, OTHER ==
[~2019-05-20] MED LIST changes: +LIDOCAINE 1% MDV 20ML VIAL As Ordered ONE
[2019-05-20 14:45] VITALS: BP 159/79
--- NOTE | 2019-05-20 15:44 | REP ---
SPECIMEN RADIOGRAPH: Specimen radiograph is performed following stereotactic biopsy of the right breast. Stereotactic biopsy is performed of microcalcifications in the upper outer quadrant. Multiple calcifications are seen in the specimens. Electronically Signed by Ethan Rojas MD 05/20/2019 06:23 P
--- NOTE | 2019-05-20 15:45 | REP ---
POSTBIOPSY MAMMOGRAM RIGHT BREAST: Postbiopsy mammogram right breast performed, following sterotactic biopsy of microcalcifications in the upper outer quadrant of the right breast. A marking clip is seen at the site of the biopsy, in appropriate position. Electronically Signed by Ethan Rojas MD 05/20/2019 06:23 P
--- NOTE | 2019-05-20 18:15 | REP ---
STEREOTACTIC RIGHT BREAST BIOPSY The procedure was performed under the direct supervision of Dr. Rojas The patient has a history of a grouping of predominantly punctate microcalcifications in the upper outer quadrant of the right breast seen on a previous mammogram dated 04/22/2019. The risks and benefits of the procedure were explained to the patient and informed consent was obtained. A craniocaudal approach was utilized. The calcifications were localized using stereotactic mammographic guidance. 1% Xylocaine was used as a local anesthetic. An 10 gauge, suction assisted Mammotome needle was inserted and 6 core biopsy samples were obtained. Specimen radiograph demonstrates the presence of calcifications to be within the specimen. A marker clip was placed at the biopsy site. The patient tolerated the procedure well and there were no immediate complications. After the appropriate amount of monitored convalescence, the patient was discharged from the department. Electronically Signed by PEDRO PABLO Hernandez 05/20/2019 05:53 P Electronically Signed by Ethan Rojas MD 05/20/2019 06:06 P
== END ==
LOC: M IRPRO 13:32
PROVIDERS: ATTEND Surgery
DX: R92.1 Mammographic calcification found on diagnostic imaging of breast (principal)

== ENCOUNTER → 2019-05-21 | Outpatient (CLI) | payer MEDICARE, BC ==
[~2019-05-21] MED LIST changes: -LIDOCAINE 1% MDV 20ML VIAL As Ordered ONE
[2019-05-21 15:31] VITALS: BP 134/82
--- NOTE | 2019-05-21 17:06 | REP ---
POST BIOPSY MAMMOGRAM LEFT BREAST: Post biopsy mammogram left breast performed in the MLO and CC projections following biopsy of a palpable lump at 2-o'clock, reportedly 8 cm from the nipple. There is a metallic clip seen in the upper outer quadrant of the left breast. On the ML view it is about 6.4 cm from the nipple. Heterogeneous dense fibroglandular tissue is unchanged. There are multiple coarse benign calcifications scattered throughout the left breast.
--- NOTE | 2019-05-21 20:56 | ROOPDOC ---
[facility] Report Of Operation Report of Operation DATE OF PROCEDURE: 05/21/19 PREPROCEDURE DIAGNOSES: Left breast mass POSTPROCEDURE DIAGNOSES: Left breast mass PROCEDURE: Ultrasound-guided biopsy of left breast mass with clip placement SURGEON: Joey York SOFTWARE DEVELOPMENT PROJECT MANAGER: ANESTHESIA: Local. ESTIMATED BLOOD LOSS: Approximately 1 mL. COMPLICATIONS: Known. REMARKS: Clip is seen seen on postbiopsy mammogram in expected position. DESCRIPTION OF PROCEDURE: Lidocaine 1% LOT CLC [id number] Expiration 04/2020 Sodium Bicarbonate 8.4% LOT [id number] Expiration 05/2020 Hydromark clip LOT [id number] Expiration 01/2022 shape 4 Bx device: BARD [id number] x10 cm LOT HUEN 1024 Expiration 02/2022 Informed consent was obtained. The most common risk and possible complications including bleeding, hematoma, bruising, infection, injury to surrounding structures were explained to the patient and she expressed understanding. Patient was taken to the procedure room and placed on the bed in the supine position with the left upper extremity placed above the head. Appropriate time out was done stating patients name, date of , and the procedure to be performed. The left breast was prepped and draped in the usual fashion. The palpation was used to confirm the location of the lesion in the left breast at 2:00 8 centimeters from the nipple and ultrasound was used to make sure safe biopsy pathway is available. Plain Lidocaine 1% and 8.4% sodium bicarbonate 10:1 mix was used to numb the skin, the biopsy site and tissues along the anticipated biopsy tract. Small skin incision was made with blade number 11. BARD Marquee 14G cannula with introducer ([id number]) was inserted through the incision and advanced under the ultrasound guidance to position immediately adjacent to the lesion. Next, the introducer was removed and BARD Marquee 14G biopsy device was places in the cannula. Pre-biopsy imaging, and post-biopsy imaging were captured. Five good core biopsies were taken at various levels of the lesion. Specimen was placed in formaldehyde, labeled with appropriate biopsy site and patients name, and sent to pathology for evaluation. Next, the biopsy device was withdrawn and a clip introducer was inserted into the biopsy site via the cannula. The Hydromark clip was deployed under direct vision. Post-clip placement image was captured. Manual pressure over the biopsy cavity and tract was held after the clip introducer was withdrawn. No bleeding was noted upon removal of the pressure. Post-biopsy mammogram of the left breast was obtained and showed clip in expected position. Postprocedural dressing was placed. Patient tolerated procedure well. Discharge instructions were discussed with the patient and she expressed understanding. JOEY YORK DO May 21, 2019 20:56
--- NOTE | 2019-05-22 08:09 | REP ---
Left breast sonography: History: Left breast ultrasound guided biopsy. Findings: Sonographic guidance is provided to Dr. Kiersten mcfarland performed ultrasound-guided needle biopsy procedure and marker clip placement. Electronically Signed by Thomas Berger MD 05/22/2019 08:00 A
== END ==
LOC: M WHCPRO 13:37
PROVIDERS: ATTEND Surgery
DX: N63.21 Unspecified lump in the left breast, upper outer quadrant (principal); R92.1 Mammographic calcification found on diagnostic imaging of breast

== ENCOUNTER → 2019-06-03 | Outpatient (CLI) | payer MEDICARE, BC, OTHER ==
[~2019-06-03] MED LIST changes: +GASTROGRAFIN SOLUTION 30ML (Q9963) As Ordered ONE; +ISOVUE-370 76% 100ML VIAL (Q9967) As Ordered ONE
--- NOTE | 2019-06-03 12:19 | REP ---
REASON FOR EXAM: History of metastatic colon carcinoma. CONTRAST: 100 mL Isovue 370. All priors were reviewed, the latest chest CT is dated 12/28/2018. There is no significant change in the appearance of the mediastinum or pulmonary pauline. No mass or adenopathy has developed. There are no pleural or pericardial effusions. The imaged osseous structures are stable and intact. Evaluation of the lung bolton shows no development of an abnormal nodule, mass, or opacity. There is an incidental right upper lobe calcified granuloma status quo. IMPRESSION: Stable CT examination of the chest. There is no evidence of acute disease. Electronically Signed by Ander Hicks DO 06/03/2019 01:01 P
--- NOTE | 2019-06-03 12:38 | REP ---
REASON: Followup history of colon carcinoma. COMPARISON: Multiple, the latest 12/28/2018. CONTRAST: 100 mL Isovue 370. The liver, spleen, pancreas, adrenal glands, and kidneys are unchanged and again seen to be within normal limits. 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 The abdominal aorta and paraaortic regions are unchanged. No adenopathy has developed. There is no free fluid or free air in the abdomen. The bowel loops and their mesenteries are unchanged. Note is again made of bilateral parastomal hernias. CT PELVIS: No mass or adenopathy has developed. There is no free fluid or free air. The bone window technique throughout the exam shows no change in the appearance of the osseous structures. IMPRESSION: No significant change from the prior exam with findings as described above. There is no evidence of acute intra-abdominal or intrapelvic disease. Electronically Signed by Ander Hicks DO 06/03/2019 01:01 P
== END ==
LOC: M RAD 09:21
PROVIDERS: ATTEND Internal Medicine Medical Oncology
DX: C18.9 Malignant neoplasm of colon, unspecified (principal)
CPT/HCPCS: 71260; 74177; Q9963; Q9967

== ENCOUNTER → 2019-08-16 | Outpatient (CLI) | payer MEDICARE, BC, OTHER ==
[~2019-08-16] MED LIST changes: -COUM1TAB14 PO; +COUM4TAB8 PO; -COUM6TAB PO; +COUM6TAB10 PO; -ISOVUE-370 76% 100ML VIAL (Q9967) As Ordered ONE; +ISOVUE-370 76% 100ML VIAL As Ordered ONE
--- NOTE | 2019-08-16 17:33 | REP ---
REASON FOR EXAM: History of colon carcinoma. All priors were reviewed, the latest 06/03/2019. CONTRAST: 100 mL Isovue-370. The liver and spleen are unchanged. The pancreas, adrenal glands, and kidneys are unchanged. The bowel loops and their mesenteries are unchanged. Bilateral parastomal hernia, status quo. No free fluid or free air is seen in the abdomen or pelvis. No intra-abdominal or intrapelvic mass or adenopathy has developed. The abdominal aorta and para-aortic regions are again seen to be within normal limits. Bone window technique throughout the examination shows the osseous structures to be unchanged. There are spinal degenerative changes, status quo. IMPRESSION: Stable exam. Electronically Signed by Ander Hicks DO 08/19/2019 08:32 A
--- NOTE | 2019-08-16 17:38 | REP ---
CT CHEST WITH IV CONTRAST: TECHNIQUE: Axial contrast-enhanced images from the thoracic inlet to the upper abdomen using 100 mL Isovue-370 intravenous contrast material with multiplanar reformations. COMPARISON: 06/03/2019 Once again in the right upper lobe, there is a calcified granuloma. This is seen on image 28. A little more inferiorly and anteriorly, there is a tiny calcified granuloma also in the right upper lobe a couple of millimeters in diameter. There are mild interstitial fibrotic changes in both lung bases. No new suspicious nodule is seen. Right central venous catheter is seen with the tip in the superior vena cava. There is no mediastinal, hilar, or chest wall lymphadenopathy. The heart is normal in size. There is no pleural or pericardial effusion. Thoracic aorta demonstrates mild atherosclerotic calcification with no aneurysm or dissection. No definite bone lesion is seen. IMPRESSION: No suspicious nodule or adenopathy. No change since prior study of 06/03/2019. Electronically Signed by Ethan Rojas MD 08/20/2019 06:56 P
== END ==
LOC: M RAD 13:29
PROVIDERS: ATTEND Internal Medicine Medical Oncology
DX: C18.9 Malignant neoplasm of colon, unspecified (principal)
CPT/HCPCS: 71260; 74177; Q9963; Q9967

== ENCOUNTER → 2019-12-02 | Outpatient (CLI) | payer MEDICARE, BC ==
[~2019-12-02] MED LIST changes: -GASTROGRAFIN SOLUTION 30ML (Q9963) As Ordered ONE; -ISOVUE-370 76% 100ML VIAL As Ordered ONE
--- NOTE | 2019-12-11 07:13 | REP ---
DIGITAL DIAGNOSTIC UNILATERAL LEFT BREAST MAMMOGRAPHY: 3-VIEWS WITH CAD HISTORY: Six month follow-up mammography status post needle biopsy procedure for microcalcifications. COMPARISON: Mammography 05/20/2019 and 04/22/2019. FINDINGS: Magnified focal spot compression CC, true mediolateral, and MLO views of the right breast demonstrate the loosely scattered grouping of microcalcifications, which was recently biopsied. The marker clip is seen in good position. The grouping is unchanged essentially from the 04/22/2019 prior study. A right-sided Infusaport catheter is noted. No new mammographic finding. IMPRESSION: Marker clip again seen in good position adjacent to the biopsied microcalcifications, which are unchanged. BI-RADS Category 2 benign findings. Annual screening mammography can resume in six months. Patients Tyrer-Cuzick lifetime breast cancer risk assessment is 8.1%. This mammogram was interpreted with the aid of an FDA approved computer-aided detection device. Patient letter: M2 dense. DARY
== END ==
LOC: M WHC 13:02
PROVIDERS: ATTEND Surgery
DX: Z86.018 Personal history of other benign neoplasm (principal); Z97.8 Presence of other specified devices
CPT/HCPCS: 77065; G0279

== ENCOUNTER → 2019-12-05 | Outpatient (CLI) | payer MEDICARE, BC ==
--- NOTE | 2019-12-11 07:13 | REP ---
BIOPSY 2 OCLOCK LEFT BREAST Real-time sonographic evaluation of the left breast is performed at the 2 o'clock position. The patient had biopsy at the 2 o'clock position 05/21/2019. A biopsy clip is again seen at the 2 o'clock position of the left breast. There is a tiny amount of surrounding post biopsy fluid. No mass is seen at this location. IMPRESSION: BI-RADS Category 2 benign ultrasound, left breast 2 o'clock. Biopsy clip again noted at that site with a tiny amount of adjacent post biopsy fluid and no sonographic evidence of a mass. MTDD
== END ==
LOC: M WHC 13:35
PROVIDERS: ATTEND Surgery
DX: Z98.890 Other specified postprocedural states (principal)

== ENCOUNTER → 2020-02-04 | Outpatient (CLI) | payer MEDICARE, BC, OTHER ==
[~2020-02-04] MED LIST changes: +GASTROGRAFIN SOLUTION 30ML (Q9963) As Ordered ONE; +ISOVUE-370 76% 100ML VIAL As Ordered ONE
--- NOTE | 2020-02-04 16:05 | REP ---
INDICATION: COLON CA. COMPARISON: 08/16/2019 TECHNIQUE: 100 cc Isovue 370 and oral bowel preparatory contrast administration. FINDINGS: The liver, spleen, pancreas, adrenal glands, and kidneys are unchanged. The abdominal aorta and para-aortic regions are unchanged. Bilateral parastomal hernias status quo. No evidence of intestinal obstruction or acute bowel abnormality. There is no free fluid or free air. No mass or adenopathy has developed since the last exam. There is no significant change in appearance of the imaged osseous structures. IMPRESSION: No evidence of significant change compared to the prior exam with findings as described above. <Electronically signed by Ander Hicks > 02/04/20 [id number]
--- NOTE | 2020-02-04 16:09 | REP ---
INDICATION: COLON CA. COMPARISON: Multiple the latest 08/16/2019. TECHNIQUE: 100 cc Isovue 370 FINDINGS: The mediastinum and pulmonary pauline are stable. No mass or adenopathy has developed. The tip of the MediPort catheter remains in the superior vena cava. There are no pleural or pericardial effusions. There is no significant change in appearance of the imaged osseous structures. Evaluation of the lung bolton shows no evidence of significant change. No new abnormal nodules, masses, or opacities have developed. IMPRESSION: Stable CT examination of the chest with findings as described above. <Electronically signed by Ander Hicks > 02/04/20 [id number]
== END ==
LOC: M RAD 11:45
PROVIDERS: ATTEND Internal Medicine Medical Oncology
DX: C18.9 Malignant neoplasm of colon, unspecified (principal)
CPT/HCPCS: 71260; 74177; Q9963; Q9967

== ENCOUNTER → 2020-02-25 | Outpatient (CLI) | payer MEDICARE, BC, OTHER ==
[~2020-02-25] MED LIST changes: -GASTROGRAFIN SOLUTION 30ML (Q9963) As Ordered ONE; -ISOVUE-370 76% 100ML VIAL As Ordered ONE; +XARE15TA PO
--- NOTE | 2020-02-29 16:11 | REP ---
INDICATION: RESTAGING DESCENDING COLON CANCER C18.6. COMPARISON: Comparison PET-CT study August 21, 2018. Comparison chest abdomen pelvis CT study February 04, 2020.. TECHNIQUE: Forty-six minutes following the intravenous injection of a 9.01 mCi dose of F-18 FDG, three-dimensional PET scintigraphy is acquired from the skull base to the proximal thighs. Triplanar noncontrast CT scanning is acquired through the same anatomic range for attenuation correction, and image registration with scan parameters optimized to minimize radiation exposure to the patient. PET scintigraphy and CT datasets were fused and displayed on a workstation with multiplanar and projection display capability. 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 Head and neck soft tissues are otherwise unremarkable. There is no abnormal hypermetabolic uptake in the chest. In the abdomen and pelvis there is normal hepatic and splenic FDG accumulation. The gallbladder, appendix, urinary bladder, and uterus are all surgically absent. There is a left lower quadrant colostomy and a right lower quadrant urinary diversion ileostomy. There are parastomal bowel hernia is in the abdominal wall associated with both of these enterostomy unchanged. A right-sided Nxxdvb-K-Gncg catheter is noted. No abnormal hypermetabolic uptake focus is seen in the abdomen or pelvis. IMPRESSION: No new focus of hypermetabolic uptake. Extensive postoperative changes. Otherwise negative PET scintigraphy. <Electronically signed by Edgardo Berger > 02/29/20 [id number]
== END ==
LOC: M PLARAD 13:19
PROVIDERS: ATTEND Internal Medicine Medical Oncology
DX: C18.6 Malignant neoplasm of descending colon (principal)
CPT/HCPCS: 78815; A9552

== ENCOUNTER → 2020-08-06 | Outpatient (REF) | payer MEDICARE, BC, OTHER ==
[~2020-08-06] MED LIST changes: +CLAR1TAB13 PO; +XARE10TA PO
[2020-08-06 11:53] LABS: CHOLESTEROL RISK RATIO 2.025 (<5); THYROID STIMULATING HORMONE 2.96 uIU/ML (0.358-3.740)
== END ==
LOC: M LAB REF 11:02
PROVIDERS: ATTEND Family Medicine
DX: E78.5 Hyperlipidemia, unspecified (principal); R00.2 Palpitations

== ENCOUNTER → 2021-02-08 | Outpatient (REF) | payer MEDICARE, BC, OTHER ==
[~2021-02-08] MED LIST changes: +XARE20TA PO
[2021-02-08 15:58] LABS: CHOLESTEROL RISK RATIO 2.375 (<5)
== END ==
LOC: M LAB REF 15:35
PROVIDERS: ATTEND Family Medicine
DX: E78.5 Hyperlipidemia, unspecified (principal)

== ENCOUNTER → 2021-04-09 | Outpatient (CLI) | payer MEDICARE, BC, OTHER ==
[~2021-04-09] MED LIST changes: -FLUC100T PO; +FLUC100T3 PO
== END ==
LOC: M WHC 11:51
PROVIDERS: ATTEND Family Medicine
DX: Z12.31 Encounter for screening mammogram for malignant neoplasm of breast (principal)

== ENCOUNTER 2021-05-14 10:50 | Emergency (ER) | payer MEDICARE, BC, OTHER ==
[~2021-05-14] VITALS: Ht 167.6 cm; Wt 115.9 kg
[2021-05-14] MEDS ORDERED: ASPI81CH33 PO (11:04)
[2021-05-14] MEDS ORDERED: ACET1TAB55 PO (12:43)
[2021-05-14] MEDS ORDERED: HOME MED LIST COMPLETE! XX SCH (12:50)
[2021-05-14 12:58] LABS: BASO % 0.2 % (0.0-1.0); EOS % 0.4 % (0.0-3.0); HEMATOCRIT 38.4 % (36.0-47.0); HEMOGLOBIN 12.5 g/dl (12.0-15.5); LYMPH % 12.4 % (24.0-44.0); MEAN CORPUSCULAR HEMOGLOBIN 29.6 pg (27.0-33.0); MEAN CORPUSCULAR HGB CONC 32.6 g/dl (32.0-36.5); MEAN CORPUSCULAR VOLUME 90.8 fl (80.0-96.0); MONO # 0.9 10^3/uL (0.0-0.8); MONO % 10.7 % (2.0-8.0); NEUTROPHILS # 6.1 10^3/uL (1.5-8.5); NEUTROPHILS % 75.9 % (36.0-66.0); PLATELET COUNT, AUTOMATED 260 10^3/uL (150-450); RED BLOOD COUNT 4.23 10^6/uL (4.00-5.40); WHITE BLOOD COUNT 8.1 10^3/uL (4.0-10.0)
[2021-05-14 13:25] LABS: CK-MB VALUE MASS < 1.0 NG/ML (<3.6); CPK CREATINE PHOSPHOKINASE 66 U/L (26-192); MB/CK RELATIVE INDEX 1.52 (< OR =4)
[2021-05-14 13:30] LABS: ALBUMIN 2.9 GM/DL (3.2-5.2); ALT/SGPT 25 U/L (12-78); BILIRUBIN,DIRECT 0.2 MG/DL (0.0-0.2); BILIRUBIN,TOTAL 0.4 MG/DL (0.2-1.0); BLOOD UREA NITROGEN 25 MG/DL (7-18); CARBON DIOXIDE LEVEL 27 MEQ/L (21-32); CHLORIDE LEVEL 105 MEQ/L (98-107); CREATININE FOR GFR 0.93 MG/DL (0.55-1.30); GLOMERULAR FILTRATION RATE > 60.0 (>39); GLUCOSE, FASTING 102 MG/DL (70-100); LIPASE 97 U/L (73-393); NT-PRO BNP 3170 PG/ML (<125); POTASSIUM SERUM 3.6 MEQ/L (3.5-5.1); SODIUM LEVEL 139 MEQ/L (136-145); TOTAL PROTEIN 7.1 GM/DL (6.4-8.2)
[2021-05-14] MEDS ORDERED: ISOVUE-370 76% 100ML VIAL As Ordered ONE (14:24)
[2021-05-14 14:26] LABS: MB/CK RELATIVE INDEX 1.56 (< OR =4)
[2021-05-14 14:33] LABS: C REACTIVE PROTEIN QUANTITATIV 16.6 MG/DL (0.00-0.30)
[2021-05-14] MEDS ORDERED: HEPARIN SOD (PORCINE) 5000UNITS/ML 1ML VIAL/SYRINGE IV ONE (15:05)
[2021-05-14] MEDS ORDERED: HEPARIN SOD (PORCINE) 5000UNITS/ML 1ML VIAL/SYRINGE IV PRN (15:05)
[2021-05-14] MEDS ORDERED: HEPARIN DRIP 25,000 UNITS in IV 1 EA IV SCH (15:05)
[2021-05-14 15:31] LABS: INR 1.1; PROTHROMBIN TIME 14.6 SECONDS (12.7-14.5)
[2021-05-14 15:32] LABS: PARTIAL THROMBOPLASTIN TIME 30.5 SECONDS (25.9-37.0)
[2021-05-14] MEDS ORDERED: METOPROLOL 5 MG/5 ML VIAL IV STA (16:14)
[2021-05-14] MEDS ORDERED: METOPROLOL TART 25 MG TABLET PO ONE (16:15)
[2021-05-14 17:55] VITALS: BP 126/70
== END 2021-05-14 18:00 | disposition short-term general hospital (02) ==
LOC: M ED 10:50
DX: I26.99 Other pulmonary embolism without acute cor pulmonale (principal); J90 Pleural effusion, not elsewhere classified; I82.412 Acute embolism and thrombosis of left femoral vein; Z88.6 Allergy status to analgesic agent; Z79.82 Long term (current) use of aspirin; Z79.899 Other long term (current) drug therapy
CPT/HCPCS: 71045; 71275; 80048; 80076; 81001; 82550; 82553; 83605; 83690; 83880; 84443; 84484; 85025; 85610; 85652; 85730; 86140; 87040; 87088; 87186; 87798; 93005; 93041; 93306; 93970; 94760; 96374; 96375; 99285; J1644; Q9967

== ENCOUNTER → 2021-05-20 | Outpatient (CLI) | payer MEDICARE, BC, OTHER ==
[~2021-05-20] MED LIST changes: +ACET1TAB55 PO; +ASPI81CH33 PO
[2021-05-20 11:34] LABS: INR 1.79; PROTHROMBIN TIME 21.2 SECONDS (12.7-14.5)
== END ==
LOC: M LAB 10:41
DX: Z79.899 Other long term (current) drug therapy (principal); Z79.01 Long term (current) use of anticoagulants

== ENCOUNTER → 2021-05-21 | Outpatient (CLI) | payer MEDICARE, BC, OTHER ==
[2021-05-21 12:46] LABS: INR 1.93; PROTHROMBIN TIME 22.5 SECONDS (12.7-14.5)
== END ==
LOC: M LAB 10:55
DX: Z51.81 Encounter for therapeutic drug level monitoring (principal); Z79.899 Other long term (current) drug therapy

== ENCOUNTER → 2021-05-23 | Outpatient (CLI) | payer MEDICARE, BC, OTHER ==
[2021-05-23 12:03] LABS: INR 4.66
== END ==
LOC: M LAB 11:26
PROVIDERS: ATTEND Internal Medicine
DX: Z79.01 Long term (current) use of anticoagulants (principal)

== ENCOUNTER → 2021-05-25 | Outpatient (CLI) | payer MEDICARE, OTHER, BC ==
[2021-05-25 13:22] LABS: INR 3.53; PROTHROMBIN TIME 35.6 SECONDS (12.7-14.5)
== END ==
LOC: M WUC 11:00
PROVIDERS: ATTEND Internal Medicine Pulmonary Disease
DX: I26.99 Other pulmonary embolism without acute cor pulmonale (principal); Z79.01 Long term (current) use of anticoagulants

== ENCOUNTER → 2021-05-27 | Outpatient (CLI) | payer MEDICARE, OTHER, BC ==
[2021-05-27 12:51] LABS: INR 3.58
== END ==
LOC: M WUC 08:58
PROVIDERS: ATTEND Internal Medicine Pulmonary Disease
DX: I26.99 Other pulmonary embolism without acute cor pulmonale (principal)

== ENCOUNTER → 2021-05-31 | Outpatient (CLI) | payer MEDICARE, OTHER, BC ==
[2021-05-31 20:27] LABS: INR 3.68; PROTHROMBIN TIME 36.8 SECONDS (12.7-14.5)
== END ==
LOC: M WUC 11:10
PROVIDERS: ATTEND Internal Medicine Pulmonary Disease
DX: I26.99 Other pulmonary embolism without acute cor pulmonale (principal)

== ENCOUNTER → 2021-06-03 | Outpatient (CLI) | payer MEDICARE, OTHER, BC ==
[2021-06-03 13:10] LABS: INR 4.38
== END ==
LOC: M WUC 08:31
PROVIDERS: ATTEND Internal Medicine Pulmonary Disease
DX: I26.99 Other pulmonary embolism without acute cor pulmonale (principal); Z79.01 Long term (current) use of anticoagulants

== ENCOUNTER → 2021-06-05 | Outpatient (CLI) | payer MEDICARE, BC, OTHER ==
[2021-06-05 12:05] LABS: INR 3.03; PROTHROMBIN TIME 31.7 SECONDS (12.7-14.5)
== END ==
LOC: M LAB 11:24
PROVIDERS: ATTEND Internal Medicine Pulmonary Disease
DX: Z86.711 Personal history of pulmonary embolism (principal); Z79.01 Long term (current) use of anticoagulants

== ENCOUNTER → 2022-03-21 | Outpatient (CLI) | payer MEDICARE, BC, OTHER ==
[~2022-03-21] MED LIST changes: +CENT1TAB PO
== END ==
LOC: M RAD 08:38 → M WHC 08:38
PROVIDERS: ATTEND Internal Medicine Medical Oncology
DX: Z01.89 Encounter for other specified special examinations (principal)

== ENCOUNTER → 2022-05-09 | Outpatient (CLI) | payer MEDICARE, BC, OTHER ==
[~2022-05-09] MED LIST changes: +CETI10CA2 PO
== END ==
LOC: M PLARAD 09:42
PROVIDERS: ATTEND Internal Medicine Medical Oncology
DX: C18.6 Malignant neoplasm of descending colon (principal)
CPT/HCPCS: 78815; A9552

== ENCOUNTER → 2022-05-20 | Outpatient (CLI) | payer MEDICARE, BC, OTHER | LOC: M LAB 15:10 | PROVIDERS: ATTEND Family Medicine | DX: N39.0 Urinary tract infection, site not specified (principal) ==

== ENCOUNTER → 2022-07-12 | Outpatient (CLI) | payer MEDICARE, BC, OTHER ==
[~2022-07-12] MED LIST changes: +PRED20TA PO; +ROSU5TAB5
== END ==
LOC: M WHC 13:14
PROVIDERS: ATTEND Family Medicine
DX: Z12.31 Encounter for screening mammogram for malignant neoplasm of breast (principal)

== ENCOUNTER → 2022-07-13 | Outpatient (REF) | payer MEDICARE, BC, OTHER | LOC: M LAB REF 17:43 | PROVIDERS: ATTEND Internal Medicine Medical Oncology | DX: C18.9 Malignant neoplasm of colon, unspecified (principal) ==

== ENCOUNTER 2023-02-06 07:03 | Day surgery (SDC) | payer MEDICARE, BC, OTHER ==
[~2023-02-06] VITALS: Ht 167.6 cm; Wt 108.0 kg
[~2023-02-06 07:03] MED LIST changes: +ENOX60IN3 SC; +NS 1,000 ML IV ONE; +OMEP-173 PO; +PRED5TA PO; -ROSU5TAB5; +WARF4TAB51 PO
[2023-02-06] MEDS ORDERED: propofoL 200 MG/20 ML VIAL As Ordered ONE ×3 (07:06→08:09)
[2023-02-06 08:37] VITALS: BP 143/70; O2SAT 98
== END 2023-02-06 08:49 | disposition home or self-care (01) ==
LOC: M OPP 07:03
PROVIDERS: ATTEND Internal Medicine Gastroenterology
DX: Z85.038 Personal history of other malignant neoplasm of large intestine (principal); Z93.3 Colostomy status; K57.30 Diverticulosis of large intestine without perforation or abscess without bleeding; E78.00 Pure hypercholesterolemia, unspecified; Z79.899 Other long term (current) drug therapy; Z86.711 Personal history of pulmonary embolism; Z88.5 Allergy status to narcotic agent; Z85.828 Personal history of other malignant neoplasm of skin; Z80.8 Family history of malignant neoplasm of other organs or systems; Z92.21 Personal history of antineoplastic chemotherapy; Z86.718 Personal history of other venous thrombosis and embolism; Z79.01 Long term (current) use of anticoagulants

== ENCOUNTER → 2023-06-14 | Outpatient (CLI) | payer MEDICARE, BC ==
[~2023-06-14] MED LIST changes: +GASTROGRAFIN SOLUTION 30ML As Ordered ONE; +ISOVUE-370 76% 100ML VIAL As Ordered ONE; -NS 1,000 ML IV ONE
== END ==
LOC: M RAD 11:43
PROVIDERS: ATTEND Nurse Practitioner
DX: C18.9 Malignant neoplasm of colon, unspecified (principal)
CPT/HCPCS: 71260; 74177; Q9963; Q9967

== ENCOUNTER → 2023-11-14 | Outpatient (CLI) | payer MEDICARE, BC ==
[~2023-11-14] MED LIST changes: -GASTROGRAFIN SOLUTION 30ML As Ordered ONE; -ISOVUE-370 76% 100ML VIAL As Ordered ONE; +PRED25TA PO; +ROSU5TAB40 PO; -ROSU5TAB5 PO
== END ==
LOC: M WHC 14:57
PROVIDERS: ATTEND Family Medicine
DX: Z12.31 Encounter for screening mammogram for malignant neoplasm of breast (principal)

== ENCOUNTER → 2024-04-29 | Outpatient (CLI) | payer MEDICARE, BC ==
[~2024-04-29] MED LIST changes: +ISOVUE-370 76% 100ML VIAL As Ordered ONE; -ROSU5TAB40 PO; +ROSU5TAB49 PO
== END ==
LOC: M RAD 09:12
PROVIDERS: ATTEND Nurse Practitioner Women's Health
DX: C18.9 Malignant neoplasm of colon, unspecified (principal)
CPT/HCPCS: 71260; 74177; Q9967

== ENCOUNTER → 2024-11-19 | Outpatient (CLI) | payer MEDICARE, BC ==
[~2024-11-19] MED LIST changes: +ACET-1592 PO; -ACET1TAB37 PO; -ISOVUE-370 76% 100ML VIAL As Ordered ONE; +PRED50TA57 PO
== END ==
LOC: M WHC 13:56
PROVIDERS: ATTEND Family Medicine
DX: Z12.31 Encounter for screening mammogram for malignant neoplasm of breast (principal); R92.333 Mammographic heterogeneous density, bilateral breasts

== ENCOUNTER → 2024-12-19 | Outpatient (CLI) | payer MEDICARE, BC ==
[~2024-12-19] MED LIST changes: +ISOVUE-370 76% 100 ML VIAL As Ordered ONE
== END ==
LOC: M RAD 10:03
PROVIDERS: ATTEND Specialist
DX: C18.9 Malignant neoplasm of colon, unspecified (principal)
CPT/HCPCS: 71260; 74177; Q9967